=== PATIENT | female | born 1960 | race Caucasian/White ===

== ENCOUNTER 2020-01-09 09:55 | Outpatient (REF) | payer BC, SELFPAY | END 2020-01-09 09:56 | disposition home or self-care (01) | LOC: HO.LAB 09:55 | PROVIDERS: Visit Provider Internal Medicine | DX: Z20.828 Contact with and (suspected) exposure to other viral communicable diseases (principal) | CPT/HCPCS: C9803; U0003 ==

== ENCOUNTER 2020-04-19 07:16 | Emergency (ER) | payer BC, SELFPAY ==
--- NOTE | ~2020-04-19 | XR_ITS ---
EXAMINATION: XR ELBOW, RIGHT CLINICAL INFORMATION: Slip and fall. COMPARISON: None TECHNIQUE: AP, lateral, and oblique views of the right elbow. FINDINGS: There is a prominently displaced intra-articular transverse fracture through the olecranon. The fracture originates 1.7 cm distal to the proximal end of the olecranon. The fracture gap measures up to 2.7 cm. There is prominent soft tissue swelling throughout the posterior aspect of the elbow likely in part involving the olecranon bursa. There is mild apex posterior angulation at the level of the fracture. Question slight posterior subluxation capitellum with respect with the radial head. This may simply be projectional. There is a joint effusion. No additional fractures. XR/XR elbow RT min 3V IMPRESSION: Displaced intra-articular fracture of the olecranon with prominent surrounding soft tissue swelling. Question slight posterior subluxation of the capitellum. I suspect this may be artifactual related to the projection of the lateral view
[2020-04-19 07:43] VITALS: BP 144/68; PULSE 55; RESP 18; TEMP 36.6; O2SAT 99; BMI 20.7
[2020-04-19] MEDS: Acetaminophen 325 MG TABLET 650 MG PO (09:03)
[2020-04-19] MEDS: Ibuprofen 800 MG TABLET PO (09:03)
--- NOTE | 2020-04-19 09:40 | ED_ITS ---
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 Denies sx prior to fall. Denies head trauma, LOC, numbness, tingling, weakness, or injury to other area MD Complaint: extremity pain, extremity swelling, joint swelling and joint paint Onset (ago): hour(s) Related Data Allergies Allergy/AdvReac Type Severity Reaction Status Date / Time No Known Allergies Allergy Mild NOT Unverified 11/08/19 15:52 APPLICABLE Review of Systems Review of Systems: Constitutional: No Fever, No Chills Musculoskeletal: + joint pain, No Myalgias, + Joint Swelling Skin: No Skin Lesions, No rash Neuro: No Weakness, No Numbness, No Paresthesias, No LOC Yes all other systems are reviewed and are negative [facility] Past Medical History Attestation statement: The following information was validated with the patient. Medical History (Updated 04/19/20 @ 09:56 by ESSIE Goldstein) High cholesterol Social History Social History Advance Directives: No Advance Directives Information Provided: No Physical Exam Vital Signs: Vital Signs: Last Vital Signs Temp 98 F 04/19/20 07:43 Pulse 55 04/19/20 07:43 Resp 18 04/19/20 07:43 BP 144/68 H 04/19/20 07:43 Pulse Ox 99 04/19/20 07:43 Body Mass Index 20.7 Const: General: cooperative, healthy appearing and comfortable Orientation/consciousness: patient oriented x3 Limitations: no limitations HENMT: Head: Yes normal to inspection Ears: hearing grossly normal bilaterally General nose exam: Normal external nose present Face and sinus: Yes normal facial exam Eyes: General: appearance normal, both eyes and all related structures Neck: Neck: Yes normal visual inspection Resp: Effort & Inspection: normal respiratory effort Cardio: Peripheral pulses: radial pulses present Skin: Rashes: no rashes Wounds: no wounds Neuro: General: patient oriented x3 Extrem: Other: Right elbow with large swelling/effusion and ecchymosis. Tend er to palpation. Decreased ROM secondary to swelling/pain. Neurovascularly intact distally Hand/wrist forearm nontender Right upper extremity: normal capillary refill Course Course Course Narrative: XR elbow RT min 3V IMPRESSION: Displaced intra-articular fracture of the olecranon with prominent surrounding soft tissue swelling. Question slight posterior subluxation of the capitellum. I suspect this may be artifactual related to the projection of the lateral view >> case discussed with orthopedic ESSIE Burk who evaluated patient in the ED with Dr. Dodd. 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 On exam VSS, NAD, well appearing, concern for fx vs disolcation Plan: XR Discharge Plan Discharge Clinical Impression: Olecranon fracture Qualifiers: Encounter type: initial encounter Fracture type: closed Laterality: right Qualified Code(s): S52.021A - Displaced fracture of olecranon process without intraarticular extension of right ulna, initial encounter for closed fracture Patient Disposition: Home, Self-Care Instructions: Elbow Fracture (ED) Additional Instructions: You have an elbow fracture You need to follow-up with senior project controls specialist on Tuesday Keep splint on, dry, and clean Ice and elevate her elbow Take Tylenol and Motrin at home for pain and swelling, you can take Motrin 600- 800 mg every 6-8 hours. Take with food You can take Tylenol extra-strength 500 mg every 4-6 hours. Do not exceed 4 g of Tylenol in 1 day If your fingers become swollen/discolored or known, pain becomes unbearable or out of proportion remove Tommie wrap and return to the ED immediately Referrals: Rox Dodd MD [Physician] - 2 days
== END 2020-04-19 11:47 | disposition home or self-care (01) ==
PROVIDERS: Emergency Provider Emergency Medicine; PCP Internal Medicine
DX: S52.021A Displaced fracture of olecranon process without intraarticular extension of right ulna, initial encounter for closed fracture (principal); W00.0XXA Fall on same level due to ice and snow, initial encounter; Y93.01 Activity, walking, marching and hiking; Y92.480 Sidewalk as the place of occurrence of the external cause; Y99.9 Unspecified external cause status
CPT/HCPCS: 29105; 73080; 99283

== ENCOUNTER 2020-11-15 07:02 | Outpatient (REF) | payer BC, SELFPAY ==
[2020-11-15 07:35] LABS: MANUAL DIFF FLAG NO
[2020-11-15 07:44] LABS: Eosinophils Absolute Auto 0.1 X10*3/uL (0.0-0.4); Eosinophils Percent Auto 2.3 % (0-4); Hematocrit 44.2 % (37-47); Hemoglobin 14.5 g/dl (12.0-16.0); Lymphocytes Percent Auto 32.1 % (20-40); Mean Corpuscular HGB Conc 32.8 g/dl (31.0-35.0); Mean Corpuscular Hemoglobin 29.9 pg (27.0-33.0); Mean Corpuscular Volume 91.1 fL (80-98); Monocytes Absolute Auto 0.2 X10*3/uL (0.1-1.2); Monocytes Percent Auto 7.3 % (2-11); Neutrophils Absolute Auto 1.7 X10*3/uL (2.0-8.3); Neutrophils Percent Auto 57.3 % (45-73); Platelet Count 156 X10*3/uL (160-400); Red Blood Count 4.85 X10*6/uL (4.20-5.50)
[2020-11-15 08:01] LABS: Alanine Aminotransferase 25 U/L (0-31); Albumin Level 4.2 g/dL (3.5-5.0); Alkaline Phosphatase 80 U/L (39-117); Anion Gap 11 (12-20); Aspartate Amino Transferase 26 U/L (5-31); Bilirubin Total 0.8 mg/dL (0.0-1.0); Blood Urea Nitrogen 14 mg/dL (9-16); Calcium 9.4 mg/dL (8.4-10.2); Carbon Dioxide 28 mmol/L (22-29); Chloride 105 mmol/L (96-108); Cholesterol 228 mg/dL; Estimated Glomerular Filt Rate > 60; Glucose Fasting 106 mg/dL (60-99); HDL Cholesterol 75 mg/dL; LDL Cholesterol Calculated 143 mg/dl; Potassium 3.7 mmol/L (3.3-5.1); Sodium 140 mmol/L (135-145); Total Protein 6.9 g/dL (6.5-8.0); Triglycerides 51 mg/dL
[2020-11-15 08:22] LABS: Thyroid Stimulating Hormone 1.06 uIU/mL (0.32-4.0); Vitamin D 25-OH Total 45.6 ng/mL (>30)
== END 2020-11-15 07:03 | disposition home or self-care (01) ==
LOC: HO.LAB 07:02
PROVIDERS: PCP Internal Medicine; Visit Provider Internal Medicine
DX: M81.0 Age-related osteoporosis without current pathological fracture (principal); E78.00 Pure hypercholesterolemia, unspecified
CPT/HCPCS: 36415; 80053; 80061; 82306; 84443; 85025

== ENCOUNTER 2021-06-05 16:18 | Outpatient (REF) | payer BC, SELFPAY ==
--- NOTE | ~2021-06-05 | CT_ITS ---
EXAMINATION: CT ABDOMEN AND PELVIS WITHOUT CONTRAST CLINICAL INFORMATION: Abdominal pain. COMPARISON: Ultrasound abdomen 09/19/2018. TECHNIQUE: Multidetector volumetric imaging was performed from the superior aspect of the liver through the pubic symphysis. Sagittal and coronal reformatted images were obtained on the technologist's workstation. This CT examination was performed using dose optimization techniques as appropriate, variously including the following: *Automated exposure control *Adjustment of mA and/or kV according to patient size (this includes techniques or standardized protocols for targeted exams where dose is matched to indication/reason for exam; i.e. extremities or head) *Use of iterative reconstruction technique DLP: 389 mGy-cm FINDINGS: LUNG BASES: The visualized lung bases are unremarkable. LIVER, GALLBLADDER, AND BILIARY TREE: The liver is normal in size, shape, and attenuation. No focal hepatic lesion or biliary ductal dilatation is present. The gallbladder is unremarkable with no evidence of radiopaque gallstones, gallbladder wall thickening, or obvious pericholecystic inflammatory changes. PANCREAS: Unremarkable. SPLEEN: Unremarkable. ADRENAL GLANDS: Unremarkable. KIDNEYS AND URETERS: The kidneys are normal in size, shape, and attenuation. No hydronephrosis, hydroureter, or calculi seen. No perinephric stranding. BLADDER: Unremarkable. GASTROINTESTINAL TRACT: There is a large amount of stool seen in the colon without any significant distention. The small bowel loops are normal caliber. The appendix is normal caliber. ABDOMINAL WALL: No significant hernia is appreciated. LYMPH NODES: Normal. VASCULAR: Unremarkable. PELVIC VISCERA: The uterus is anteverted and appears unremarkable. OSSEOUS STRUCTURES: No lytic or sclerotic process seen. There is mildly indistinct changes L4-L5 disc level. CT/CT abdomen pelvis wo con IMPRESSION: No acute intra-abdominal process seen. Significant constipation. Normal appendix. Fleischner guidelines were followed.
[2021-06-05 16:33] LABS: MANUAL DIFF FLAG NO
[2021-06-05 16:39] LABS: Basophils Percent Auto 0.5 % (0-2); Eosinophils Absolute Auto 0.1 X10*3/uL (0.0-0.4); Eosinophils Percent Auto 0.9 % (0-4); Hematocrit 42.7 % (37.0-47.0); Imm Gran Abs Auto 0.02 X10*3/uL (0.00-0.03); Imm Gran Pct Auto 0.4 % (0.0-0.4); Lymphocytes Absolute Auto 1.4 X10*3/uL (1.2-4.9); Lymphocytes Percent Auto 25.7 % (20-40); Mean Corpuscular HGB Conc 32.8 g/dl (31.0-35.0); Mean Corpuscular Hemoglobin 29.7 pg (27.0-33.0); Mean Corpuscular Volume 90.7 fL (80.0-98.0); Mean Platelet Volume 10.8 fL (9.4-12.3); Monocytes Absolute Auto 0.4 X10*3/uL (0.1-1.2); Monocytes Percent Auto 7.4 % (2-11); Neutrophils Absolute Auto 3.6 x10*3/uL (2.0-8.3); Neutrophils Percent Auto 65.1 % (45-73); Platelet Count 176 X10*3/uL (160-400); Red Blood Count 4.71 X10*6/uL (4.20-5.50); Red Cell Distribution Width 13.4 % (11.0-16.0); White Blood Count 5.6 X10*3/uL (4.8-10.8)
[2021-06-05 16:58] LABS: Alanine Aminotransferase 19 U/L (0-31); Albumin Level 4.1 g/dL (3.5-5.0); Alkaline Phosphatase 72 U/L (39-117); Anion Gap 14 (12-20); Aspartate Amino Transferase 26 U/L (5-31); Bilirubin Total 1.1 mg/dL (0.0-1.0); Blood Urea Nitrogen 15 mg/dL (9-16); C Reactive Protein 5.38 mg/dL (< or = 0.50); Calcium 9.7 mg/dL (8.4-10.2); Carbon Dioxide 25 mmol/L (22-29); Chloride 103 mmol/L (96-108); Estimated Glomerular Filt Rate > 60; Glucose Random 93 mg/dL (60-115); Lipase 18 U/L (8-78); Potassium 4.3 mmol/L (3.3-5.1); Sodium 138 mmol/L (135-145); Total Protein 7.3 g/dL (6.5-8.0)
[2021-06-05 18:20] LABS: Appearance Urine CLEAR; Color Urine DK YELLOW; Glucose Urine UA NEG (NEG); Leukocyte Esterase Urine 1+ (NEG); Nitrite Urine NEG (NEG); Specific Gravity - Urine 1.025 (1.005-1.025); Urine Blood 2+ (NEG); Urine Ketones NEG (NEG); Urine Protein TRACE MG/DL (NEG-TRACE)
[2021-06-05 18:29] LABS: Mucus Urine TRACE /LPF; WBC Clumps Urine NOTED
== END 2021-06-05 16:19 | disposition home or self-care (01) ==
LOC: HO.CT 16:18
PROVIDERS: PCP Internal Medicine; Visit Provider Internal Medicine
DX: R10.30 Lower abdominal pain, unspecified (principal)
CPT/HCPCS: 36415; 74176; 80053; 81001; 83690; 85025; 86140

== ENCOUNTER 2022-09-17 08:46 | Outpatient (REF) | payer BC, SELFPAY ==
[2022-09-17 11:27] LABS: MANUAL DIFF FLAG NO
[2022-09-17 11:35] LABS: Basophils Percent Auto 0.7 % (0-2); Eosinophils Percent Auto 0.7 % (0-4); Hematocrit 44.3 % (37.0-47.0); Hemoglobin 14.7 g/dl (12.0-16.0); Imm Gran Abs Auto 0.01 X10*3/uL (0.00-0.03); Imm Gran Pct Auto 0.3 % (0.0-0.4); Lymphocytes Absolute Auto 1.2 X10*3/uL (1.2-4.9); Lymphocytes Percent Auto 37.8 % (20-40); Mean Corpuscular HGB Conc 33.2 g/dl (31.0-35.0); Mean Corpuscular Hemoglobin 30.2 pg (27.0-33.0); Mean Corpuscular Volume 91.2 fL (80.0-98.0); Mean Platelet Volume 11.7 fL (9.4-12.3); Monocytes Absolute Auto 0.3 X10*3/uL (0.1-1.2); Monocytes Percent Auto 8.9 % (2-11); Neutrophils Absolute Auto 1.6 x10*3/uL (2.0-8.3); Neutrophils Percent Auto 51.6 % (45-73); Platelet Count 146 X10*3/uL (160-400); Red Blood Count 4.86 X10*6/uL (4.20-5.50); Red Cell Distribution Width 13.2 % (11.0-16.0)
[2022-09-17 11:58] LABS: Alanine Aminotransferase 20 U/L (0-31); Albumin Level 4.2 g/dL (3.5-5.0); Alkaline Phosphatase 61 U/L (39-117); Anion Gap 15 (12-20); Aspartate Amino Transferase 27 U/L (5-31); Bilirubin Total 0.9 mg/dL (0.0-1.0); Blood Urea Nitrogen 22 mg/dL (9-16); Calcium 9.5 mg/dL (8.4-10.2); Carbon Dioxide 24 mmol/L (22-29); Chloride 102 mmol/L (96-108); Cholesterol 248 mg/dL; Estimated Glomerular Filt Rate > 60; Glucose Fasting 82 mg/dL (60-99); HDL Cholesterol 75 mg/dL; LDL Cholesterol Calculated 164 mg/dl; Potassium 3.9 mmol/L (3.3-5.1); Sodium 137 mmol/L (135-145); Total Protein 7.1 g/dL (6.5-8.0); Triglycerides 45 mg/dL
== END 2022-09-17 08:47 | disposition home or self-care (01) ==
LOC: HO.HMGCLDS 08:46
PROVIDERS: PCP Internal Medicine; Visit Provider Internal Medicine
DX: E78.00 Pure hypercholesterolemia, unspecified (principal); M81.0 Age-related osteoporosis without current pathological fracture
CPT/HCPCS: 36415; 80053; 80061; 82306; 84443; 85025

== ENCOUNTER 2022-11-22 12:48 | Outpatient (REF) | payer BC, SELFPAY ==
[2022-11-22 16:01] LABS: Appearance Urine Clear; Color Urine Yellow; Glucose Urine UA Negative (Negative); Leukocyte Esterase Urine Negative (Negative); Nitrite Urine Negative (Negative); PH 5.5 (5.0-9.0); Specific Gravity - Urine <= 1.005 (1.005-1.025); Urine Blood Negative (Negative); Urine Ketones Negative (Negative); Urine Protein Negative (Neg-Trace)
[2022-11-22 16:03] LABS: Bacteria Urine None Seen (None Seen); Hyaline Casts Urine 0-2 /LPF (0-2); RBC Urine 0-2 /HPF (0-2); Squamous Epithelial Cell Urine 0-2 /HPF (0-2); WBC Urine 0-5 /HPF (0-5)
== END 2022-11-22 12:49 | disposition home or self-care (01) ==
LOC: HO.HMGCLDS 12:48
PROVIDERS: PCP Internal Medicine; Visit Provider Internal Medicine
DX: E78.00 Pure hypercholesterolemia, unspecified (principal); M81.0 Age-related osteoporosis without current pathological fracture
CPT/HCPCS: 81001

== ENCOUNTER 2023-08-02 06:36 | Outpatient (REF) | payer BC, SELFPAY ==
[2023-08-02 10:29] LABS: Appearance Urine Clear; Color Urine Yellow; Glucose Urine UA Negative (Negative); Leukocyte Esterase Urine Trace (Negative); Nitrite Urine Negative (Negative); Specific Gravity - Urine <= 1.005 (1.005-1.025); UMIC TRIGGER UA YES; Urine Blood Negative (Negative); Urine Ketones Negative (Negative); Urine Protein Negative (Neg-Trace)
[2023-08-02 10:31] LABS: MANUAL DIFF FLAG NO
[2023-08-02 10:46] LABS: Eosinophils Absolute Auto 0.1 X10*3/uL (0.0-0.4); Eosinophils Percent Auto 2.3 % (0-4); Hematocrit 42.3 % (37.0-47.0); Hemoglobin 14.4 g/dl (12.0-16.0); Lymphocytes Percent Auto 31.8 % (20-40); Mean Corpuscular Hemoglobin 31.3 pg (27.0-33.0); Mean Platelet Volume 11.3 fL (9.4-12.3); Monocytes Absolute Auto 0.3 X10*3/uL (0.1-1.2); Monocytes Percent Auto 8.2 % (2-11); Neutrophils Absolute Auto 1.7 x10*3/uL (2.0-8.3); Neutrophils Percent Auto 56.7 % (45-73); Platelet Count 154 X10*3/uL (160-400); Red Cell Distribution Width 14.1 % (11.0-16.0); White Blood Count 3.1 X10*3/uL (4.8-10.8)
[2023-08-02 11:34] LABS: Bacteria Urine None Seen (None Seen); Hyaline Casts Urine 0-2 /LPF (0-2); RBC Urine 0-2 /HPF (0-2); Squamous Epithelial Cell Urine 0-2 /HPF (0-2); WBC Urine 0-5 /HPF (0-5)
[2023-08-02 11:37] LABS: Alanine Aminotransferase 28 U/L (0-31); Albumin Level 3.9 g/dL (3.5-5.0); Alkaline Phosphatase 86 U/L (39-117); Anion Gap 11 (12-20); Aspartate Amino Transferase 33 U/L (5-31); Bilirubin Total 0.4 mg/dL (0.0-1.0); Blood Urea Nitrogen 15 mg/dL (9-16); Carbon Dioxide 28 mmol/L (22-29); Chloride 104 mmol/L (96-108); Cholesterol 220 mg/dL (<200); Estimated Glomerular Filt Rate > 60; Glucose Fasting 89 mg/dL (60-99); HDL Cholesterol 78 mg/dL (>40); LDL Cholesterol Calculated 134 mg/dL (<100); Potassium 4.2 mmol/L (3.3-5.1); Sodium 139 mmol/L (135-145); Total Protein 6.4 g/dL (6.5-8.0); Triglycerides 41 mg/dL (<150)
[2023-08-02 11:40] LABS: Thyroid Stimulating Hormone 2.26 uIU/mL (0.32-4.0); Vitamin D 25-OH Total 84.7 ng/mL (>30)
== END 2023-08-02 06:37 | disposition home or self-care (01) ==
LOC: HO.HMGCLDS 06:36
PROVIDERS: PCP Internal Medicine; Visit Provider Internal Medicine
DX: Z00.00 Encounter for general adult medical examination without abnormal findings (principal); E78.00 Pure hypercholesterolemia, unspecified; M81.0 Age-related osteoporosis without current pathological fracture
CPT/HCPCS: 36415; 80053; 80061; 81001; 82306; 84443; 85025

== ENCOUNTER 2023-12-26 13:59 | Emergency (ER) | payer BC, SELFPAY ==
--- NOTE | ~2023-12-26 | CT_ITS ---
EXAMINATION: CT ABDOMEN AND PELVIS WITH CONTRAST CLINICAL INFORMATION: Left lower quadrant and pelvic pain COMPARISON: CT abdomen pelvis 06/05/21 TECHNIQUE: Multidetector volumetric imaging was performed from the superior aspect of the liver through the pubic symphysis with intravenous contrast. A total of 85 mL of Omnipaque 350 was utilized for the study. Sagittal and coronal reformatted images were obtained on the technologist's workstation. This CT examination was performed using dose optimization techniques as appropriate, variously including the following: *Automated exposure control *Adjustment of mA and/or kV according to patient size (this includes techniques or standardized protocols for targeted exams where dose is matched to indication/reason for exam; i.e. extremities or head) *Use of iterative reconstruction technique DLP: 362 mGy-cm FINDINGS: LUNG BASES: The visualized lung bases are unremarkable. LIVER, GALLBLADDER, AND BILIARY TREE: The liver is normal in size, shape, and attenuation. No focal hepatic lesion or biliary ductal dilatation is present. The gallbladder is unremarkable with no evidence of radiopaque gallstones, gallbladder wall thickening, or obvious pericholecystic inflammatory changes. PANCREAS: Unremarkable. SPLEEN: Unremarkable. ADRENAL GLANDS: Unremarkable. KIDNEYS AND URETERS: The kidneys are normal in size, shape, and attenuation. No hydronephrosis, hydroureter, or calculi seen. No perinephric stranding. BLADDER: Unremarkable. GASTROINTESTINAL TRACT: The small and large bowel are unremarkable. The appendix is unremarkable. ABDOMINAL WALL: No significant hernia is appreciated. LYMPH NODES: Normal. VASCULAR: Unremarkable. PELVIC VISCERA: Unremarkable. OSSEOUS STRUCTURES: Degenerative changes are seen most marked at L4-L5. CT/CT abdomen pelvis w IV con IMPRESSION: A cause for the patient's left lower quadrant and pelvic pain has not been found. Fleischner guidelines were followed. Electronically signed by: Reymundo Ragland MD 12/26/2023 11:13 PM [facility] [place]
[2023-12-26 14:07] VITALS: BP 105/53; PULSE 62; RESP 18; TEMP 36.1; O2SAT 97; BMI 18.7
--- NOTE | 2023-12-26 14:12 | ED_ITS ---
HPI - General Adult General Chief complaint: Abdominal Pain Stated complaint: lower abd pain Time Seen by Provider: 12/26/23 20:29 Source: patient Limitations: no limitations History of Present Illness ED Provider: Carol Ann mcduffie PA-C HPI narrative: 63-year-old otherwise healthy female presents with left-sided groin pain x1 month. Pain worse with movement, the patient never developed swelling within this region. Denies abdominal distention, inability to pass flatus, constipation, nausea, vomiting. No fevers. Patient does perform a great deal of physical activity, she could have sustained musculoskeletal strain. Related Data Allergies Allergy/AdvReac Type Severity Reaction Status Date / Time amoxicillin Allergy Itching Verified 12/26/23 14:09 Review of Systems 2 Review of Systems: Yes all other systems are reviewed and are negative Constitutional: Constitutional: Denies fatigue and Denies fever(s) Cardiovascular: Cardiovascular: Denies chest pain and Denies dyspnea Respiratory: Respiratory: Denies dyspnea Gastrointestinal: Gastrointestinal: Reports abdominal pain, Denies nausea and Denies vomiting Endocrine: Endocrine: Denies fatigue [facility] Past Medical History Medical History (Updated 12/28/23 @ 00:02 by Background Daemon) Osteoporosis High cholesterol Social History Social History Smoked in Last 30 Days: No Use of substances other than those prescribed or required for medical reasons: No Any prior treatment program specific to substance use: No Advance Directives: No Advance Directives Information Provided: No Do you have a plan to hurt others: No Plan Patient : No Physical Exam ED Vital Signs: Vital Signs - 24 hr 12/26/23 14:07 12/26/23 20:34 12/26/23 22:13 Temperature 97 F 97.5 F 97.6 F Pulse Rate 62 50 66 Respiratory Rate 18 20 16 Blood Pressure 105/53 L 113/59 L 116/66 Pulse Oximetry 97 98 97 Oxygen Delivery Method Room Air Room Air Room Air 12/27/23 00:00 12/27/23 00:23 Temperature 97.8 F 97.6 F Pulse Rate 66 66 Respiratory Rate 16 16 Blood Pressure 126/73 116/66 Pulse Oximetry 98 97 Oxygen Delivery Method Room Air Room Air BMI result Body Mass Index 18.7 Const Other: Alert, well in appearance Orientation/consciousness: patient oriented x3 Resp Other: Nonlabored respiration Cardio Other: Normal peripheral perfusion GI Other: Abdomen is soft, nondistended nontender no guarding, no swelling within the left inguinal region, nontender to palpation Skin Other: Warm dry no rash Neuro General: patient oriented x3, no focal motor deficits and CN's II-XI intact bilaterally Psych Other: Calm cooperative Course Course Course Narrative: RME: 63-year-old female presents to ED bilateral lower abdominal pain with groin pain without any mass, fever, chills, nausea, vomiting. Patient admits to foul odor urine. Abdominal exam benign. CVA flex negative. Labs UA ordered. Medications Administered Discontinued Medications Generic Name Dose Route Start Last Admin Trade Name Luisq PRN Reason Stop Dose Admin Iohexol 85 ml 12/26/23 21:05 12/26/23 21:06 Iohexol 350 Mg/Ml 100 Ml Infus..Btl IV 12/26/23 21:06 85 ml ONCE ONE Administration Medical Decision Making Medical Decision Making [facility] Narrative: 63-year-old otherwise healthy female presents with left-sided groin pain x1 month. Pain worse with movement, the patient never developed swelling within this region. Denies abdominal distention, inability to pass flatus, constipation, nausea, vomiting. No fevers. Patient does perform a great deal of physical activity, she could have sustained musculoskeletal strain. No chronic issues History: Per patient I have considered the following differential diagnoses: Inguinal hernia, incarcerated hernia, strangulated hernia, bowel obstruction, musculoskeletal strain Plan: Unclear why the patient comes to the ER given a month's worth of symptoms. Screening labs were obtained from triage and are completely unremarkable. Considering bowel obstruction, however she has no obstructive symptoms. There was no evidence of an inguinal hernia on exam. We will obtain a CT scan. I have independently reviewed the following tests: Labs: No leukocytosis, not anemic, no electrolyte abnormality, urine not in fact CT abdomen and pelvis: CT/CT abdomen pelvis w IV con IMPRESSION: A cause for the patient's left lower quadrant and pelvic pain has not been found. Fleischner guidelines were followed. Electronically signed by: Reymundo Ragland MD 12/26/2023 11:13 PM [facility] Lab Data 12/26/23 14:40 12/26/23 14:40 Labs: Lab Results 12/26/23 12/26/23 Range/Units 14:40 14:54 WBC 3.8 L (4.8-10.8) X10*3/uL RBC 4.23 (4.20-5.50) X10*6/uL Hgb 12.9 (12.0-16.0) g/dl Hct 38.4 (37.0-47.0) % MCV 90.8 (80.0-98.0) fL MCH 30.5 (27.0-33.0) pg MCHC 33.6 (31.0-35.0) g/dl RDW 14.6 (11.0-16.0) % Plt Count 144 L (160-400) X10*3/uL MPV 10.4 (9.4-12.3) fL Immature Gran % (Auto) 0.3 (0.0-0.4) % Neut % (Auto) 52.0 (45-73) % Lymph % (Auto) 37.1 (20-40) % [place] % (Auto) 8.7 (2-11) % Eos % (Auto) 1.1 (0-4) % Baso % (Auto) 0.8 (0-2) % Lymph # (Auto) 1.4 (1.2-4.9) X10*3/uL [place] # (Auto) 0.3 (0.1-1.2) X10*3/uL Eos # (Auto) 0.0 (0.0-0.4) X10*3/uL Baso # (Auto) 0.0 (0.0-0.2) X10*3/uL Abs Immat Gran (auto) 0.01 (0.00-0.03) X10*3/uL Absolute Neuts (auto) 2.0 (2.0-8.3) x10*3/uL Absolute Nucleated RBC 0.000 (0.0-0.012) X10*3/uL Nucleated RBC % (auto) 0.0 (0.0-0.2) /100WBC PT 11.6 (10.9-12.4) SEC INR 1.0 (0.9-1.1) APTT 31.2 (26.0-36.8) SEC Sodium 139 (135-145) mmol/L Potassium 3.8 (3.3-5.1) mmol/L Chloride 103 (96-108) mmol/L Carbon Dioxide 28 (22-29) mmol/L Anion Gap 12 (12-20) BUN 21 H (9-16) mg/dL Creatinine 0.71 (0.5-1.4) mg/dL Estim Creat Clear Calc 77.4 Estimated GFR > 60 Random Glucose 88 (60-115) mg/dL Calcium 9.7 D (8.4-10.2) mg/dL Total Bilirubin 0.6 (0.0-1.0) mg/dL AST 35 H (5-31) U/L ALT 30 (0-31) U/L Alkaline Phosphatase 85 (39-117) U/L Total Protein 6.6 (6.5-8.0) g/dL Albumin 4.0 (3.5-5.0) g/dL Urine Color Yellow Urine Appearance Clear Urine pH 6.5 (5.0-9.0) Ur Specific [place] <= 1.005 (1.005-1.025) Urine Protein Negative (Neg-Trace) mg/dL Urine Glucose (UA) Negative (Negative) mg/dL Urine Ketones Negative (Negative) mg/dL Urine Blood Negative (Negative) Urine Nitrite Negative (Negative) Ur Leukocyte Esterase Negative (Negative) Discharge Plan Discharge Clinical Impression: Left groin pain Patient Disposition: Home, Self-Care Additional Instructions: The CT scan of your abdomen and pelvis was completely normal, this is likely strain of the groin. All of your labs were normal as well. Continue to follow up with your primary care provider as needed. You can use ibuprofen 600 mg taken every 6 hours with food, alternated with Tylenol 1000 mg taken every 8 hours, for your pain. Interventions: ED Discharge Assessment Last Done: 12/27/23 00:23 Discharge Date/Time: 12/27/23 00:24 Print Language: Korean
[2023-12-26 14:45] LABS: MANUAL DIFF FLAG NO
[2023-12-26 14:48] LABS: Basophils Percent Auto 0.8 % (0-2); Eosinophils Percent Auto 1.1 % (0-4); Hematocrit 38.4 % (37.0-47.0); Hemoglobin 12.9 g/dl (12.0-16.0); Imm Gran Abs Auto 0.01 X10*3/uL (0.00-0.03); Imm Gran Pct Auto 0.3 % (0.0-0.4); Lymphocytes Absolute Auto 1.4 X10*3/uL (1.2-4.9); Lymphocytes Percent Auto 37.1 % (20-40); Mean Corpuscular HGB Conc 33.6 g/dl (31.0-35.0); Mean Corpuscular Hemoglobin 30.5 pg (27.0-33.0); Mean Corpuscular Volume 90.8 fL (80.0-98.0); Mean Platelet Volume 10.4 fL (9.4-12.3); Monocytes Absolute Auto 0.3 X10*3/uL (0.1-1.2); Monocytes Percent Auto 8.7 % (2-11); Platelet Count 144 X10*3/uL (160-400); Red Blood Count 4.23 X10*6/uL (4.20-5.50); Red Cell Distribution Width 14.6 % (11.0-16.0); White Blood Count 3.8 X10*3/uL (4.8-10.8)
[2023-12-26 14:51] LABS: Prothrombin Time 11.6 SEC (10.9-12.4)
[2023-12-26 14:54] LABS: Partial Thromboplastin Time 31.2 SEC (26.0-36.8)
[2023-12-26 15:05] LABS: Appearance Urine Clear; Color Urine Yellow; Glucose Urine UA Negative (Negative); Leukocyte Esterase Urine Negative (Negative); Nitrite Urine Negative (Negative); PH 6.5 (5.0-9.0); Specific Gravity - Urine <= 1.005 (1.005-1.025); Urine Blood Negative (Negative); Urine Ketones Negative (Negative); Urine Protein Negative (Neg-Trace)
[2023-12-26 15:06] LABS: Alanine Aminotransferase 30 U/L (0-31); Alkaline Phosphatase 85 U/L (39-117); Anion Gap 12 (12-20); Aspartate Amino Transferase 35 U/L (5-31); Bilirubin Total 0.6 mg/dL (0.0-1.0); Blood Urea Nitrogen 21 mg/dL (9-16); Calcium 9.7 mg/dL (8.4-10.2); Carbon Dioxide 28 mmol/L (22-29); Chloride 103 mmol/L (96-108); Creatinine Clr Calc Pharmacy 77.4; Estimated Glomerular Filt Rate > 60; Glucose Random 88 mg/dL (60-115); Potassium 3.8 mmol/L (3.3-5.1); Sodium 139 mmol/L (135-145); Total Protein 6.6 g/dL (6.5-8.0)
--- OUTSIDE RECORDS SUMMARY | 2023-12-26 20:21 | XMS_ITS | Continuity of Care Document ---
Author Organization [facility] ter Address [address] [place] [address]- Care Team Providers Care Poultry Farm Supervisor Name Role Phone Brijesh Tabares DO Primary Care Physician [phone] Encounter [facility] Date(s): 02/26/19 - 02/26/[address] [address]- [facility] Discharge Disposition: A-D/C Home Attending Physician: Shiv Torres MD Admitting Physician: Shiv Torres MD Referring Physician: Shiv Torres MD Allergies, Adverse Reactions, Alerts Substance Reaction Severity Status Animal Dander itchy eyes and skin itches cats and dogs Active Immunizations Given and Recorded Vaccine Date Status Refusal Reason pneumococcal 23-valent vaccine 1 07/08/12 Given 1Early/Late Reason: Other : Medications atorvastatin 40 mg oral tablet 1 tablet = 40 mg, By Mouth, Daily in AM, 0 Refills, Maintenance Start Date: 07/12/18 Status: Ordered Vital Signs Most recent to oldest [Reference Range]: 1 2 3 Height 173 cm (02/26/19 1:58 PM) 177.80 cm (02/20/19 8:56 AM) Weight 66.3 kg (02/26/19 1:58 PM) 63.64 kg (02/20/19 8:56 AM) Oxygen Saturation [94-100 %] 100 % (02/26/19 5:00 PM) 100 % (02/26/19 4:45 PM) 100 % (02/26/19 4:30 PM) Pulse Rate [55-90 bpm] 51 bpm *L* (02/26/19 1:58 PM) Body Mass Index [18.5-24.99] 22.15 (02/26/19 1:58 PM) 20.13 (02/20/19 8:56 AM) Blood Pressure [90-138/55-84 mm Hg] 115/72mm Hg (02/26/19 5:00 PM) 115/72mm Hg (02/26/19 4:45 PM) 133/68mm Hg (02/26/19 4:30 PM) Respiratory Rate [16-30 br/min] 15 br/min *L* (02/26/19 5:00 PM) 18 br/min (02/26/19 4:45 PM) 16 br/min (02/26/19 4:30 PM) Temperature [96.8-100.4 DegF] 97.2 DegF (02/26/19 4:15 PM) 97.4 DegF (02/26/19 1:58 PM) Mode of Delivery (Oxygen) Room air (02/26/19 7:30 PM) Room air (02/26/19 1:58 PM) Blood pressure sites Arm, left (02/26/19 1:58 PM) Temperature Route Temporal (02/26/19 4:15 PM) Temporal (02/26/19 1:58 PM) Dry Weight 66.3 kg (02/26/19 1:58 PM) 63.64 kg (02/20/19 8:56 AM) Weight Obtained Via Standing scale (02/26/19 1:58 PM) Patient/family stated (02/20/19 8:56 AM) Dry Weight Obtained Via Standing scale (02/26/19 1:58 PM) Patient/family stated (02/20/19 8:56 AM)
--- OUTSIDE RECORDS SUMMARY | 2023-12-26 20:21 | XMS_ITS | Continuity of Care Document ---
Author Organization [facility] ter Address [address] [place] [address]- Care Team Providers Care Housekeeping Coordinator Name Role Phone Brijesh Tabares DO Primary Care Physician [phone] Encounter [facility] Date(s): 05/04/19 - 05/04/[address] [address]- [facility] Discharge Disposition: A-D/C Home Attending Physician: Shiv [...] Refills, Maintenance Start Date: 07/12/18 Status: Ordered Results Orders for Microbiology Reports Name Date Anaerobic Culture 05/04/19 Microbiology Reports TEST:Anaerobic Culture STATUS:Unauthenticated BODY SITE: SOURCE:ASPIRA COLLECTED DATE/TIME:05/04/19 12:30 PM Anaerobic Culture SPECIMEN DESCRIPTION : ASPIRATE BREAST RT SEROMA SPECIAL REQUESTS : NONE REPORT STATUS : PRELIMINARY REPORT Vital Signs Most recent to oldest [Reference Range]: 1 Height 173 cm (05/04/19 10:17 AM) Weight 62.7 kg (05/04/19 10:17 AM) Oxygen Saturation [94-100 %] 97 % (05/04/19 10:05 AM) Pulse Rate [55-90 bpm] 56 bpm (05/04/19 10:05 AM) Blood Pressure [90-138/55-84 mm Hg] 125/ 53mm Hg (05/04/19 10:05 AM) Respiratory Rate [16-30 br/min] 20 br/mi n (05/04/19 10:05 AM) Temperature [96.8-100.4 DegF] 98.5 DegF (05/04/19 10:05 AM) Mode of Delivery (Oxygen) Room air (05/04/19 10:05 AM) Blood pressure sites Arm, left (05/04/19 10:05 AM) Temperature Route Oral (05/04/19 10:05 AM) Dry Weight 62.7 kg (05/04/19 10:17 AM)
--- OUTSIDE RECORDS SUMMARY | 2023-12-26 20:21 | XMS_ITS | Patient Health Record ---
Author Organization [facility] Address [address] [place] [address] Care Team Providers Care Gaming Cage Worker Name Role Phone Brijesh Tabares DO Primary Care Provider Unavail able Brijesh Levi Unavailable [phone] REASON FOR REFERRAL No Information MEDICATIONS Medication SIG (Take, Route, Frequency, Duration) Notes Start Date End Date Status Krill Oil 500 MG Orally Act miladis Vitamin C 1000 MG 1 tablet Orally Once a day Active Multi Vitamin/Minerals Orally Active Biotin Maximum Strength 5000 MCG 1 capsule Orally Once a day Active Escitalopram Oxalate 10 MG 1 tablet Oral ly Once a day Active Vitamin D-Vitamin K Orally Active MoviPrep 100 GM as directed Orally a s directed for 1 dose 02/06/2014 Active Atorvastatin Calcium 20 MG 1 tablet Oral ly Once a day Active SOCIAL HISTORY Sex Assigned At : Social History Observation Description Sex Assigned At Unknown PROBLEMS Problem Type ICD Code Onset Dates Problem Status W/U Status Risk SNOMED Code Notes Problem Colon cancer screening (V76.51) Active confirmed Colon cancer screening (815854668) Problem Encounter for long-term (current) use of other high-risk medications (V58.69) Active confirmed Long-term drug therapy (325141113) PLAN OF TREATMENT Future Test Test Name Order Date COLONOSCOPY 02/05/2014 Next Appt Details Provider Name:Brijesh Levi , 03/14/2024 02:40:00 PM, [address], [address], [place], [address], Insurance Providers Payer Name Payer Address Payer Phone Subscriber Number Group Number Insured Name Patient Relationship to Insured Coverage Start Date Coverage End Date [facility] [employer] [facility] [address] [place] [address] [id number] JOELLEN KING Self - patient is the insured 4 MEDICAL (GENERAL) HISTORY Medical History History ICD Code Breast cancer 2009--primarily on the lef t[facility] describes that it was stress induced --2012--reports a normal cardiac cath Denies DM,CVA,Lung disease,renal disease Hyperlipidemia Depression Surgical History Surgery Date(Month/Year) bilateral mastectomy--at [facility] 2009 reconstructive surgery-Dr. Torres 2009-2 012 vein ligation- several [phone]
--- OUTSIDE RECORDS SUMMARY | 2023-12-26 20:21 | XMS_ITS | Continuity of Care Document ---
Author Organization [facility] ter Address [address] [place] [address]- Care Team Providers Care Stack Clerk Name Role Phone Brijesh Tabares DO Primary Care Physician [phone] Encounter [facility] Date(s): 03/02/21 - 05/24/[address] [address] Attending Physician: Shiv Torres MD Admitting Physician: Shiv Torres MD Allergies, Adverse Reactions, Alerts Substance Reaction Severity Status Pollen Active Immunizations Given and Recorded Vaccine Date Status Refusal Reason pneumococcal 23-valent vaccine 1 07/08/12 Given 1Early/Late Reason: Other : Medications atorvastatin 40 mg oral tablet 1 tablet = 40 mg, By Mouth, Daily in AM, 0 Refills, Maintenance Start Date: 07/12/18 Status: Ordered
--- OUTSIDE RECORDS SUMMARY | 2023-12-26 20:21 | XMS_ITS | Continuity of Care Document ---
Author Organization [facility] Address [address] [place] [address]- Care Team Providers Care Pediatric Care Coordinator Name Role Phone Brijesh Tabares DO Primary Care Physician Encounter 06/19/20 - 06/26/20 [facility] [place] [address], [address] [place] [address]- Attending Physician: Izabel Starr MD Admitting Physician: Izabel tSarr MD Referring Physician: Izabel Starr MD Allergies, Adverse Reactions, Alerts Substance Reaction Severity Status Pollen Active Immunizations Given and Recorded Vaccine Date Status Refusal Reason pneumococcal 23-valent vaccine 1 07/08/12 Given 1Early/Late Reason: Other : Medications atorvastatin 40 mg oral tablet 1 tablet = 40 mg, By Mouth, Daily in AM, 0 Refills, Maintenance Start Date: 07/12/18 Status: Ordered Results Radiology Reports * Exam Date Time Procedure Performing Provider Status 06/19/20 11:20 AM Dexa Bone Density (Axial) Indu Zheng ce; Auth (Verified) Notes: (Dexa Bone Density (Axial)) Reason For Exam: Z13.820 OSTEOPOROSIS RESULT: DEXA BONE DENSITY (AXIAL) Bone Density Report Name: JOELLEN KING Age: 60 Sex: Female Ethnicity: White Date of : 1960 Indication: OSTEOPOROSIS. Referring Provider: IZABEL STARR Study: Bone densitometry was performed. Exam Date: June 19, 2020 Accession number: [id number] Bone Density: Region BMD T-score Z-score Classification AP Spine (L1-L4) 0.638 -3.7 -2.4 Osteoporosis Femoral Neck (Left) 0.587 -2.4 -1.2 Osteopenia Total Hip (Left) 0.668 -2.2 -1.4 Osteopenia World Health Organization criteria for BMD impression classify patients as: Normal (T-score at or above -1.0), Osteopenia (T-score between -1.0 and -2.5), or Osteoporosis (T-score at or below -2.5). 10-year Fracture Risk: FRAX not reported because: Some T-score at or below -2.5 Clinical Information Provided by Patient: Has used the following medications: Vitamin D Has the following medical conditions: Cancer Patient maximum height was 70.0 Menopause Age: 54 Onset of menses at age 17 Number of children 4 Impression: The patient has osteoporosis as determined by WHO criteria. Based on the results of the patient???s bone density assessment, the risk of future fracture increases approximately two fold for each 1.0 SD decrease in T-score. However, low BMD is not the only risk factor for a future fragility fracture. Other clinical risk factors for osteoporotic fracture should be considered in ascertaining this patient???s future fracture risk including the patient???s age, previous osteoporotic (fragility) fracture, estrogen deficiency/hypogonadism, risk of falling, use of medications implicated in bone loss (glucocorticoids), family history of osteoporotic fracture, diseases and conditions associated with bone loss, low body weight, smoking, high bone turnover, etc. Combining low BMD and other clinical risk factors result in a more precise assessment of future fracture risk. Secondary causes for osteoporosis, such as osteomalacia, other metabolic bone disorders, and diseases and conditions that may contribute to accelerated bone loss may have to be considered depending on the clinical situation. A repeat bone density assessment should be considered in two years. Reported by: Luz Maria Winn M.D. on 06/20/2020 2:15:00 PM. Dictated By: Luz Maria Winn MD Dictated Date/Time: 06/20/20 2:15 pm Reviewed By: Luz Maria Winn MD Signed By: Luz Maria Winn MD Signed Date/Time: 06/20/20 2:15 pm Transcribed By: MEL Transcribed Date/Time: 06/20/20 2:15 pm
--- OUTSIDE RECORDS SUMMARY | 2023-12-26 20:21 | XMS_ITS | Continuity of Care Document ---
Author Organization [facility] Address [address] [place] [address]- Care Team Providers Care Management Professionals Name Role Phone Brijesh Tabares DO Primary Care Physician [phone] Encounter [facility] [place] Date(s): 09/30/23 - 10/31/[address] [address] Encounter Diagnosis Dizziness and giddiness(Final) - Discharge Disposition: A-D/C Home Attending Physician: Brijesh Tabares DO Admitting Physician: Brijesh Tabares DO Referring Physician: Brijesh Tabares DO Allergies, Adverse Reactions, Alerts Substance Reaction Severity Status amoxicillin extreme itching Active Other Environmental Allergy seasonal: na rosalba congestion, post nasal drip, Active Pollen nasal congestion, post nasal drip Active Immunizations Given and Recorded Vaccine Date Status Refusal Reason pneumococcal 23-valent vaccine 1 07/08/12 Given 1Early/Late Reason: Other : Medications atorvastatin 40 mg oral tablet 1 tablet = 40 mg, By Mouth, Daily in AM, 0 Refills, Maintenance Start Date: 07/12/18 Status: Ordered Pen [place], 31 G x 5 mm BD Ultra Fine III See Instructions, # 100 each, Refills 1, Tot. Refills 1, Maintenance, Use daily with tymlos, 09/22/23 15:35:00 EDT, Supply, 171.5, cm, 08/04/23 11:09:00 EDT, Height Start Date: 09/22/23 Status: Ordered Tymlos 3120 mcg/1.56 mL subcutaneous solution = 80 mcg, Subcutaneous Injection, Daily, rotate injection sites, # 1.56 mL, 5 Refills, Maintenance,09/22/23 15:34:00 EDT, Solution, [facility], Partial fill upon patient request if the prescription is for a schedule II opioid drug.,... Start Date: 09/22/23 Status: Ordered Tymlos 3120 mcg/1.56 mL subcutaneous solution = 80 mcg, Subcutaneous Injection, Daily in AM, rotate injection sites, # 1.56 mL, 0 Refills, Maintenance, 07/23/21 10:44:00 EDT, Solution, Partial fill upon patient request if the prescription is fora schedule II opioid drug. Start Date: 07/23/21 Status: Ordered Patient Care team information Care Team Personnel Name: Brijesh Tabares DO Position: Reference Physician Member Role: PCP Address: Address: [address] [place] [address] [place] [address]- Care Team Related Persons Name: SHON KING Address: home [address] [place] [address]
--- OUTSIDE RECORDS SUMMARY | 2023-12-26 20:21 | XMS_ITS | Continuity of Care Document ---
Author Organization [facility] ter Address [address] [place] [address]- Care Team Providers Care Hydroelectric Plant Technician Name Role Phone Brijesh Tabares DO Primary Care Physician [phone] [place] [facility] [place] - 09/27/[address] [address]- [facility] Attending Physician: Shiv Torres MD Admitting Physician: [...]
--- OUTSIDE RECORDS SUMMARY | 2023-12-26 20:21 | XMS_ITS | Continuity of Care Document ---
Author Organization [facility] Address [address] [place] [address]- Care Team Providers Care Serology Technician Name Role Phone Brijesh Tabares DO Primary Care Physician Encounter 06/23/22 - 06/30/22 [facility] [address] [place] [address]- Attending Physician: Marly Mena Admitting Physician: Marly Mena Referring Physician: Marly Mena Allergies, Adverse Reactions, Alerts Substance Reaction Severity [...] Refills, Maintenance Start Date: 07/12/18 Status: Ordered Tymlos 3120 mcg/1.56 mL subcutaneous solution = 80 mcg, Subcutaneous Injection, Daily in AM, rotate injection sites, # 1.56 mL, 0 Refills, Maintenance, 07/23/21 10:44:00 EDT, Solution, Partial fill upon patient request if the prescription is fora schedule II opioid drug. Start Date: 07/23/21 Status: Ordered Results Radiology Reports * Exam Date Time Procedure Performing Provider Status 06/23/22 3:55 PM Dexa Bone Density (Axial) Lois Todd (Verified) Notes: (Dexa Bone Density (Axial)) Reason For Exam: M81.0 AGE-RELATED OSTEOPOROSIS RESULT: DEXA BONE DENSITY (AXIAL) Bone Density Report Name: JOELLEN KING Age: 62 Sex: Female Ethnicity: White Date of : 1960 Indication: POSTMENOPAUSAL. Referring Provider: MARLY MENA Study: Bone densitometry was performed. Exam Date: June 23, 2022 Accession number: [id number] Bone Density: Region BMD T-score Z-score Classification AP Spine(L1-L4) 0.707 -3.1 -1.7 Osteoporosis Femoral Neck (Left) 0.584 -2.4 -1.1 Osteopenia Total Hip (Left) 0.668 -2.2 -1.3 Osteopenia World Health Organization criteria for BMD impression classify patients as: Normal (T-score at or above -1.0), Osteopenia (T-score between -1.0 and -2.5), or Osteoporosis (T-score at or below -2.5). 10-year Fracture Risk: FRAX not reported because: Some T-score at or below -2.5 Previous Exams: Region Exam Age BMD T-score BMD Change BMD Change Date g/cm2 vs Baseline vs Previous AP Spine(L1-L4) 06/23/2022 62 0.707 -3.1 10.8%* 10.8%* 06/19/2020 60 0.638 -3.7 Total Hip(Left) 06/23/2022 62 0.668 -2.2 0.1% 0.1% 06/19/2020 60 0.668 -2.2 Femoral Neck(Left) 06/23/2022 62 0.584 -2.4 -0.6% -0.6% 06/19/2020 60 0.587 -2.4 *Denotes significance at 95% confidence level, LSC for AP Spine = 0.022 g/cm2, LSC for Total Hip = 0.027 g/cm2 Clinical Information Provided by Patient: Smokes Has used the following medications: Vitamin D, Calcium Has the following medical conditions: Cancer Patient maximum height was 70.0 Menopause Age: 54 Onset of menses at age 17 Number of children 4 Impression: The patient has osteoporosis as determined by WHO criteria. Reported by: Fernie Centeno M.D. on 06/25/2022 4:10:00 PM. Dictated By: Fernie Centeno MD Dictated Date/Time: 06/25/22 4:11 pm Reviewed By: Fernie Centeno MD Signed By: Fernie Centeno MD Signed Date/Time: 06/25/22 4:11 pm Transcribed By: MEL Transcribed Date/Time: 06/25/22 4:11 pm DXA Skeletal system.axial Views for bone density * BHSPowerscribe , CIS S: TRANSCRIBE BHSPowerscriakiko , CIS S: TRANSCRIBE, VERIFY Fernie Centeno MD: VERIFY, VERIFY Fernie Centeno MD: VERIFY Event Display: Result: Authored Date: [id number] Bone Density Report Name: JOELLEN KING Age: 62 Sex: Female Ethnicity: White Date of : 1960 Indication: POSTMENOPAUSAL. Referring Provider: MARLY MENA Study: Bone densitometry was performed. Exam Date: June 23, 2022 Accession number: [id number] Bone Density: Region BMD T-score Z-score Classification AP Spine(L1-L4) 0.707 -3.1 -1.7 Osteoporosis Femoral Neck (Left) 0.584 -2.4 -1.1 Osteopenia Total Hip (Left) 0.668 -2.2 -1.3 Osteopenia World Health Organization criteria for BMD impression classify patients as: Normal (T-score at or above -1.0), Osteopenia (T-score between -1.0 and -2.5), or Osteoporosis (T-score at or below -2.5). 10-year Fracture Risk: FRAX not reported because: Some T-score at or below -2.5 Previous Exams: Region Exam Age BMD T-score BMD Change BMD Change Date g/cm2 vs Baseline vs Previous AP Spine(L1-L4) 06/23/2022 62 0.707 -3.1 10.8%* 10.8%* 06/19/2020 60 0.638 -3.7 Total Hip(Left) 06/23/2022 62 0.668 -2.2 0.1% 0.1% 06/19/2020 60 0.668 -2.2 Femoral Neck(Left) 06/23/2022 62 0.584 -2.4 -0.6% -0.6% 06/19/2020 60 0.587 -2.4 *Denotes significance at 95% confidence level, LSC for AP Spine = 0.022 g/cm2, LSC for Total Hip = 0.027 g/cm2 Clinical Information Provided by Patient: Smokes Has used the following medications: Vitamin D, Calcium Has the following medical conditions: Cancer Patient maximum height was 70.0 Menopause Age: 54 Onset of menses at age 17 Number of children 4 Impression: The patient has osteoporosis as determined by WHO criteria. Reported by: Fernie Centeno M.D. on 06/25/2022 4:10:00 PM. Dictated By: Fernie Centeno MD Dictated Date/Time: 06/25/22 4:11 pm Reviewed By: Fernie Centeno MD Signed By: Fernie Centeno MD Signed Date/Time: 06/25/22 4:11 pm Transcribed By: MEL Transcribed Date/Time: 06/25/22 4:11 pm Patient Care team information Care Team Personnel Name: Brijesh Tabares DO Position: Reference Physician Member Role: PCP Address: Address: [address] [place] [address] [place] [address]- Care Team Related Persons Name: SHON KING Address: home [address] [place] [id number]
--- OUTSIDE RECORDS SUMMARY | 2023-12-26 20:21 | XMS_ITS | Continuity of Care Document ---
Author Organization [facility] Address [address] [place] [address]- Care Team Providers Care Chainstitch Sewing Machine Operator Name Role Phone Raysa Brijesh KERR Primary Care Physician Encounter [facility] [place] Date(s): 09/22/23 - 10/22/23 [facility] [address] [place] [address] Allergies, Adverse Reactions, Alerts Substance Reaction Severity [...] Maintenance Start Date: 07/12/18 Status: Ordered Pen [place], 31 G x 5 mm BD Ultra Fine III See Instructions, # 100 each, Refills 1, Tot. Refills 1, Maintenance, Use daily with tymlos, 09/22/23 15:35:00 EDT, Supply, 171.5, cm, 08/04/23 11:09:00 EDT, Height Start Date: 09/22/23 Status: Ordered Tymlos 3120 mcg/1.56 mL subcutaneous solution = 80 mcg, Subcutaneous Injection, Daily, rotate injection sites, # 1.56 mL, 5 Refills, Maintenance,09/22/23 15:34:00 EDT, Solution, [facility], Partial fill upon [...] Reference Physician Member Role: PCP Address: Address: [address] [place] [address] [place] [address]- Care Team Related Persons Name: SHON KING Address: [address] [address]
--- OUTSIDE RECORDS SUMMARY | 2023-12-26 20:21 | XMS_ITS | Continuity of Care Document ---
Author Organization [facility] Address [address] [place] [address]- Care Team Providers Care Automatic Serging Machine Operator Name Role Phone Brijesh Tabares DO Primary Care Physician Encounter [facility] [place] Date(s): 04/30/19 - 05/10/19 [facility] [address] [place] [address]- [facility] Attending Physician: Marianne Vázquez Admitting Physician: Marianne Vázquez Referring Physician: AdmtrMarianne Allergies, Adverse Reactions, Alerts Substance Reaction Severity [...]
--- OUTSIDE RECORDS SUMMARY | 2023-12-26 20:21 | XMS_ITS | Continuity of Care Document ---
Author Organization [facility] Address [address] [place] [address]- Care Team Providers Care Direct Sales Professional Name Role Phone Brijesh Tabares DO Primary Care Physician Encounter [facility] [place] Date(s): 08/05/23 - 09/04/23 [facility] [address] [place] [address] Allergies, Adverse Reactions, Alerts Substance Reaction Severity Status amoxicillin extreme itching Active Pollen nasal congestion, post nasal drip Active Other Environmental Allergy seasonal: na rosalba congestion, post nasal drip, Active Immunizations Given and Recorded Vaccine Date [...] Reference Physician Member Role: PCP Address: Address: [address] [place] [address] [place] [address]- Care Team Related Persons Name: SHON KING Address: home [address] [place] [address]
--- OUTSIDE RECORDS SUMMARY | 2023-12-26 20:21 | XMS_ITS | Continuity of Care Document ---
Author Organization [facility] [place] Address [address] [facility] [place] [address]- Care Team Providers Care Bindery Leadperson Name Role Phone Brijesh Tabares DO Primary Care Physician Encounter 04/24/19 - 05/01/19 [facility] [address], [facility] [address] [place] [address]- [phone] Attending Physician: Shiv Torres MD Admitting Physician: [...]
--- OUTSIDE RECORDS SUMMARY | 2023-12-26 20:21 | XMS_ITS | Continuity of Care Document ---
Author Organization [facility] ter Address [address] [place] [address]- Care Team Providers Care Funds Development Director Name Role Phone Raysa Brijesh KERR Primary Care Physician Encounter [facility] [place] Date(s): 04/25/20 - 04/25/[address] [address] Discharge Disposition: A-D/C Home Attending Physician: Brenda Corey MD Admitting Physician: Brenda Corey MD Referring Physician: Brenda Corey MD Allergies, Adverse Reactions, Alerts Substance Reaction Severity Status NKA Active Immunizations Given and Recorded Vaccine Date Status Refusal Reason pneumococcal 23-valent vaccine 1 07/08/12 Given 1Early/Late Reason: Other : Medications atorvastatin 40 mg oral tablet 1 tablet = 40 mg, By Mouth, Daily in AM, 0 Refills, Maintenance Start Date: 07/12/18 Status: Ordered Results Radiology Reports * Exam Date Time Procedure Performing Provider Status 04/25/20 9:38 AM C-Arm < 1 Hour Hilda Akers; Aut h (Verified) Notes: (C-Arm < 1 Hour) Reason For Exam: ORIF R olecranon--TT 15min FT 2 sec RESULT: C-Arm < 1 Hour C-Arm < 1 Hour INDICATION: Reason: ORIF R olecranon--TT 15min FT 2 sec; Special Instructions: ORIF R olecranon--[id number] FT 2 sec COMPARISONS: None TECHNIQUE: Fluoroscopy support was provided. There was no radiologist in attendance. Fluoroscopy time: 2 seconds Technologist time: 15 minutes FINDINGS: Fluoroscopy support was provided. There was no radiologist in attendance. IMPRESSION: See above. WSN: [id number] Ordering Physician: Brenda Corey Dictated By: Reymundo Low MD Dictated Date/Time: 04/25/20 9:52 pm Reviewed By: Reymundo Low MD Signed By: Reymundo Low MD Signed Date/Time: 04/25/20 9:52 pm Transcribed By: MEL Transcribed Date/Time: 04/25/20 7:22 pm * Exam Date Time Procedure Performing Provider Status 04/25/20 9:38 AM Elbow 2 Views Right Hilda Akers ; Charisse (Verified) Notes: (Elbow 2 Views Right) Reason For Exam: ORIF R olecranon--TT 15min FT 2 sec RESULT: Elbow 2 Views Right Elbow 2 Views Right INDICATION / CLINICAL QUESTION: Reason: ORIF R olecranon--TT 15min FT 2 sec The acute fracture with 04/19/2020 resulting from a fall. TECHNIQUE: 3 images. COMPARISON: None. FINDINGS: Olecranon fracture has been treated by a sideplate medially and laterally. Multiple screws associated with each plate. Orthopedic hardware satisfactory position and intact. Grossly satisfactory positioning of bony fragments with fracture not clearly identified on this exam.. IMPRESSION: 1. Satisfactory intraoperative appearance at the end of ORIF olecranon fracture.. WSN: [id number] Ordering Physician: Brenda Corey Dictated By: Arley Rodríguez MD Dictated Date/Time: 04/25/20 10:07 a Reviewed By: Arley Rodríguez MD Signed By: Arley Rodríguez MD Signed Date/Time: 04/25/20 10:07 am Transcribed By: MEL Transcribed Date/Time: 04/25/20 10:05 am Vital Signs Most recent to oldest [Reference Range]: 1 2 3 Oxygen Saturation [94-100 %] 94 % (04/25/20 11:15 AM) 94 % (04/25/20 11:00 AM) 96 % (04/25/20 10:45 AM) Pulse Rate [55-90 bpm] 49 bpm *L* (04/25/20 7:10 AM) Blood Pressure [90-138/55-84 mm Hg] 102/62mm Hg (04/25/20 11:15 AM) 100/65mm Hg (04/25/20 11:00 AM) 96/78mm Hg (04/25/20 10:45 AM) Respiratory Rate [16-30 br/min] 19 br/min (04/25/20 11:15 AM) 16 br/min (04/25/20 11:00 AM) 16 br/min (04/25/20 10:45 AM) Temperature [96.8-100.4 DegF] 98.8 DegF (04/25/20 10:00 AM) 99.0 DegF (04/25/20 7:10 AM) Liters per Minute 4 L/min (04/25/20 10:00 AM) 2 L/min (04/25/20 7:50 AM) 4 L/min (04/25/20 7:45 AM) Mode of Delivery (Oxygen) Room air (04/25/20 11:00 AM) Room air (04/25/20 10:45 AM) Room air (04/25/20 10:30 AM) Blood pressure sites Arm, left (04/25/20 7:45 AM) Arm, left (04/25/20 7:39 AM) Temperature Route Temporal (04/25/20 10:00 AM) Temporal (04/25/20 7:10 AM) Dry Weight 66.7 kg (04/25/20 7:10 AM) Dry Weight Obtained Via Standing scale (04/25/20 7:10 AM)
--- OUTSIDE RECORDS SUMMARY | 2023-12-26 20:21 | XMS_ITS | Continuity of Care Document ---
Author Organization [facility] ter Address [address] [place] [address]- Care Team Providers Care Medical Instrument Cable Fabricator Name Role Phone Brijesh Tabares DO Primary Care Physician [place] [facility] [place] - 07/28/[address] [address]- Discharge Disposition: A-D/C Home Attending Physician: Shiv [...] opioid drug. Start Date: 07/23/21 Status: Ordered Vital Signs Most recent to oldest [Reference Range]: 1 2 3 Weight 63.2 kg (07/28/21 2:56 PM) Oxygen Saturation [94-100 %] 95 % (07/28/21 5:45 PM) 100 % (07/28/21 5:30 PM) 100 % (07/28/21 5:15 PM) Pulse Rate [55-90 bpm] 50 bpm *L* (07/28/21 2:56 PM) Blood Pressure [90-138/55-84 mm Hg] 138/70mm Hg (07/28/21 5:45 PM) 134/63mm Hg (07/28/21 5:30 PM) 141/70mm Hg *H* (07/28/21 5:15 PM) Respiratory Rate [16-30 br/min] 20 br/min (07/28/21 5:45 PM) 14 br/min *L* (07/28/21 5:30 PM) 20 br/min (07/28/21 5:15 PM) Temperature [96.8-100.4 DegF] 97.8 DegF (07/28/21 5:15 PM) 98.3 DegF (07/28/21 2:56 PM) Liters per Minute 6 L/min (07/28/21 5:15 PM) Mode of Delivery (Oxygen) Room air (07/28/21 6:45 PM) Room air (07/28/21 5:45 PM) Simple face mask (07/28/21 5:15 PM) Blood pressure sites Arm, right (07/28/21 2:56 PM) Temperature Route Temporal (07/28/21 5:15 PM) Temporal (07/28/21 2:56 PM) Dry Weight 63.2 kg (07/28/21 2:56 PM) Weight Obtained Via Standing scale (07/28/21 2:56 PM) Dry Weight Obtained Via Standing scale (07/28/21 2:56 PM)
--- OUTSIDE RECORDS SUMMARY | 2023-12-26 20:21 | XMS_ITS | Continuity of Care Document ---
Author Organization [facility] Address [address] [place] [address]- Care Team Providers Care Liaison Inspection Laboratory Assistant Name Role Phone Brijesh Tabares DO Primary Care Physician [phone] En[place] [facility] [place] Date(s[place] 07/16/20 - 08/15/[address] [address] Attending Physician: Marianne Vázquez Admitting Physician: Marianne Vázquez Referring Physician: Admtr, Ar8 Allergies, Adverse Reactions, Alerts Substance Reaction Severity Status Pollen Active Immunizations Given and Recorded Vaccine Date Status Refusal Reason pneumococcal 23-valent vaccine 1 07/08/12 Given 1Early/Late Reason: Other : Medications atorvastatin 40 mg oral tablet 1 tablet = 40 mg, By Mouth, Daily in AM, 0 Refills, Maintenance Start Date: 07/12/18 Status: Ordered
--- OUTSIDE RECORDS SUMMARY | 2023-12-26 20:21 | XMS_ITS | Continuity of Care Document ---
Author Organization [facility] Address [address] [place] [address]- Care Team Providers Care Dispensing Operator Name Role Phone Brijesh Tabares DO Primary Care Physician [phone] Encounter [facility] [place] Date(s): 08/22/23 - 09/21/23 [facility] [address] [place] [id number] Attending Physician: Marianne Vázquez Admitting Physician: AdmMarianne siegel Referring Physician: AdmtrChris8 Allergies, Adverse Reactions, Alerts Substance Reaction Severity [...] Reference Physician Member Role: PCP Address: Address: [address] [place] [address] [place] [address]- Care Team Related Persons Name: SHON KING Address: home [address] [place] [address]
--- OUTSIDE RECORDS SUMMARY | 2023-12-26 20:21 | XMS_ITS | Continuity of Care Document ---
Author Organization [facility] Address [address] [place] [address]- Care Team Providers Care Sour Bleaching Pleater Name Role Phone Brijesh Tabares DO Primary Care Physician Encounter [facility] [place] Date(s): 10/19/23 - 11/18/[address] [id number] Attending Physician: AdmMarianne siegel Admitting Physician: Admtr, Ar8 Referring Physician: Admtr, Ar8 Allergies, Adverse Reactions, [...] Maintenance Start Date: 07/12/18 Status: Ordered Pen [place], 31 G x 5 mm BD Ultra Fine III See Instructions, # 100 each, Refills 1, Tot. Refills 1, Maintenance, Use daily with tymlos, 09/22/23 15:35:00 EDT, Supply, 171.5, cm, 08/04/23 11:09:00 EDT, Height Start Date: 09/22/23 Status: Ordered Tymlos 3120 mcg/1.56 mL subcutaneous solution = 80 mcg, Subcutaneous Injection, Daily, rotate injection sites, # 1.56 mL, 5 Refills, Maintenance,09/22/23 15:34:00 EDT, Solution, [facility], Partial fill upon patient [...] Reference Physician Member Role: PCP Address: Address: [address] [place] [address] [place] [address]- Care Team Related Persons Name: SHON KING Address: home [address] [place] [id number]
--- OUTSIDE RECORDS SUMMARY | 2023-12-26 20:21 | XMS_ITS | Continuity of Care Document ---
Author Organization [facility] Address [address] [place] [address]- Care Team Providers Care Corrosion Engineer Name Role Phone Brijesh Tabares DO Primary Care Physician [phone] Encounter [facility] [place] Date(s): 08/05/23 - 09/04/23 [facility] [address] [place] [id number] Allergies, Adverse Reactions, Alerts Substance Reaction Severity [...] Reference Physician Member Role: PCP Address: Address: [address] [place] [address] [place] [address]- Care Team Related Persons Name: SHON KING Address: home [address] [place] [address]
--- OUTSIDE RECORDS SUMMARY | 2023-12-26 20:21 | XMS_ITS | Continuity of Care Document ---
Author Organization [facility] Address [address] [place] [address]- Care Team Providers Care Electric Detector Operator Name Role Phone Raysa KERRBrijesh Primary Care Physician [place] [facility] [place] Date(s): 07/24/21 - 07/24/[address] [id number] Discharge Disposition: A-D/C Home Attending Physician: [...] Exam Date Time Procedure Performing Provider Status 07/24/21 3:40 PM C-Arm < 1 Hour Houston Bingham; Auth (Vertwila fitiffanie) Notes: (C-Arm < 1 Hour) Reason For Exam: rt elbow RESULT: C-Arm < 1 Hour Elbow 2 Views Right, C-Arm < 1 Hour INDICATION: Reason: rt elbow COMPARISONS: 04/25/2020 TECHNIQUE: Fluoroscopy support was provided. There was no radiologist in attendance. FLUOROSCOPY TIME: 4.6 seconds EXPOSURE: .23 mGy TECHNOLOGIST TIME: 5 minutes FINDINGS: Single fluoroscopic view of the right elbow was submitted. Previously seen hardware has been removed. Please refer to operative note for full details. IMPRESSION: See above. . WSN: [id number] Ordering Physician: Brenda Corey Dictated By: Doug Nair MD Dictated Date/Time: 07/24/21 4:46 pm Reviewed By: Doug Nair MD Signed By: Doug Nair MD Signed Date/Time: 07/24/21 4:46 pm Transcribed By: MEL Transcribed Date/Time: 07/24/21 4:45 pm * Exam Date Time Procedure Performing Provider Status 07/24/21 3:40 PM Elbow 2 Views Right Houston Bingham; Auth (Verified) Notes: (Elbow 2 Views Right) Reason For Exam: rt elbow RESULT: Elbow 2 Views Right Elbow 2 Views Right, C-Arm < 1 Hour INDICATION: Reason: rt elbow COMPARISONS: 04/25/2020 TECHNIQUE: Fluoroscopy support was provided. There was no radiologist in attendance. FLUOROSCOPY TIME: 4.6 seconds EXPOSURE: .23 mGy TECHNOLOGIST TIME: 5 minutes FINDINGS: Single fluoroscopic view of the right elbow was submitted. Previously seen hardware has been removed. Please refer to operative note for full details. IMPRESSION: See above. . WSN: [id number] Ordering Physician: Brenda Corey Dictated By: Doug Nair MD Dictated Date/Time: 07/24/21 4:46 pm Reviewed By: Doug Nair MD Signed By: Doug Nair MD Signed Date/Time: 07/24/21 4:46 pm Transcribed By: MEL Transcribed Date/Time: 07/24/21 4:45 pm Vital Signs Most recent to oldest [Reference Range]: 1 2 3 Height 177.8 cm (07/24/21 1:33 PM) 177.8 cm (07/23/21 11:29 AM) Weight 63.4 kg (07/24/21 1:33 PM) 63.64 kg (07/23/21 11:29 AM) Oxygen Saturation [94-100 %] 100 % (07/24/21 5:30 PM) 100 % (07/24/21 5:15 PM) 99 % (07/24/21 5:00 PM) Pulse Rate [55-90 bpm] 51 bpm *L* (07/24/21 1:33 PM) Body Mass Index [18.5-24.99] 20.06 (07/24/21 1:33 PM) 20.13 (07/23/21 11:29 AM) Blood Pressure [90-138/55-84 mm Hg] 117/89mm Hg (07/24/21 5:15 PM) 111/55mm Hg (07/24/21 5:00 PM) 124/76mm Hg (07/24/21 4:45 PM) Respiratory Rate [16-30 br/min] 22 br/min (07/24/21 5:30 PM) 16 br/min (07/24/21 5:15 PM) 19 br/min (07/24/21 5:00 PM) Temperature [96.8-100.4 DegF] 97.4 DegF (07/24/21 4:15 PM) 98.7 DegF (07/24/21 1:33 PM) Liters per Minute 6 L/min (07/24/21 4:15 PM) Mode of Delivery (Oxygen) Room air (07/24/21 6:00 PM) Room air (07/24/21 4:45 PM) Simple face mask (07/24/21 4:15 PM) Blood pressure sites Arm, left (07/24/21 4:15 PM) Arm, left (07/24/21 1:33 PM) Temperature Route Temporal (07/24/21 4:15 PM) Temporal (07/24/21 1:33 PM) Dry Weight 63.4 kg (07/24/21 1:33 PM) Weight Obtained Via Standing scale (07/24/21 1:33 PM) Patient/family stated (07/23/21 11:29 AM) Dry Weight Obtained Via Standing scale (07/24/21 1:33 PM)
--- OUTSIDE RECORDS SUMMARY | 2023-12-26 20:22 | XMS_ITS | Patient Health Record ---
Author Organization Brijesh Tabares DO, FACP Address [address] [facility] [place] [id number] Care Team Providers Care Surgical Brace Maker Name Role Phone Brijesh Tabares Primary Care Provider ALLERGIES Allergen (clinical drug ingredient) Drug/Non Drug Allergy documented on EMR Reaction Allergy Type Onset Date Status amoxicillin Amoxicillin pruritis, rash Drug Allergy Active RESULTS Component Value Reference Range Notes Complete Blood Count Auto Di ff Reviewed date:08/02/2023 11:26:39 AM Interpretation:Abnormal Performing Lab:[facility], [address] [place] [phone] Notes/Report: White Blood Count 3.1 4.8-10.8 X10*3/uL Red Blood Count 4.60 4.20-5.50 X10*6/uL Hemoglobin 14.4 12.0-16.0 g/dl Hematocrit 42.3 37.0-47.0 % Mean Corpuscular Volume 92.0 80.0-98.0 fL Mean Corpuscular Hemoglobin 31.3 27.0-33.0 pg Mean Corpuscular HGB Conc 34.0 31.0-35.0 g/dl Red Cell Distribution Width 14.1 11.0-16.0 % Platelet Count 154 160-400 X10*3/uL Mean Platelet Volume 11.3 9.4-12.3 fL Neutrophils Percent Auto 56.7 45-73 % Imm Gran Pct Auto 0.0 0.0-0.4 % Lymphocytes Percent Auto 31.8 20-40 % Monocytes Percent Auto 8.2 2-11 % Eosinophils Percent Auto 2.3 0-4 % Basophils Percent Auto 1.0 0-2 % NRBC Pct Auto 0.0 0.0-0.2 /100WBC Neutrophils Absolute Auto 1.7 2.0-8.3 x10*3/u L Imm Gran Abs Auto 0.00 0.00-0.03 X10*3/uL Lymphocytes Absolute Auto 1.0 1.2-4.9 X10*3/u L Monocytes Absolute Auto 0.3 0.1-1.2 X10*3/uL Eosinophils Absolute Auto 0.1 0.0-0.4 X10*3/u L Basophils Absolute Auto 0.0 0.0-0.2 X10*3/uL NRBC Abs Auto 0.000 0.0-0.012 X10*3/uL Urinalysis and Microscopic Reviewed date:08/02/2023 10:42:52 AM Interpretation:Abnormal Performing Lab:[facility], [address] [place] [id number] Notes/Report: Color Urine Yellow Appearance Urine Clear PH 8.0 5.0-9.0 Glucose Urine UA Negative Negative mg/dL Urine Blood Negative Negative Specific [place] - Urine <= 1.005 1.005-1.025 Urine Protein Negative Neg-Trace mg/dL Urine Ketones Negative Negative mg/dL Nitrite Urine Negative Negative Leukocyte Esterase Urine Trace Negative RBC Urine 0-2 0-2 /HPF WBC Urine 0-5 0-5 /HPF Squamous Epithelial Cell Urine 0-2 0-2 /HPF Bacteria Urine None Seen None Seen Hyaline Casts Urine 0-2 0-2 /LPF Comprehensive [place]. Panel Fa st Reviewed date:08/02/2023 12:26:01 PM Interpretation:Abnormal Performing Lab:[facility], [address] [place] [phone] Notes/Report: Sodium 139 135-145 mmol/L Potassium 4.2 3.3-5.1 mmol/L Chloride 104 96-108 mmol/L Carbon Dioxide 28 22-29 mmol/L Anion Gap 11 12-20 Blood Urea Nitrogen 15 9-16 mg/dL Creatinine 0.71 0.5-1.4 mg/dL Estimated Glomerular Filt Rate > 60 NOTE: For -[place] individuals, multiply the result by 1.210. Chronic Kidney Disease: Estimated GFR < 60 mL/min/1.73m2 Severe Kidney Disease: Estimated GFR < 15 mL/min/1.73m2 Glucose Fasting 89 60-99 mg/dL Calcium 9.0 8.4-10.2 mg/dL Bilirubin Total 0.4 0.0-1.0 mg/dL Aspartate Amino Transferase 33 5-31 U/L Alanine Aminotransferase 28 0-31 U/L Total Protein 6.4 6.5-8.0 g/dL Albumin Level 3.9 3.5-5.0 g/dL Alkaline Phosphatase 86 39-117 U/L Lipid Panel Reviewed date:08/02/2023 12:26:01 PM Interpretation:Abnormal Performing Lab:[facility], [address] [place] [id number] Notes/Report: Triglycerides 41 <150 mg/dL Desirable Triglyceride: less than 150 mg/dL Borderline High Triglyceride 150-199 mg/dL High Triglyceride: 200-499 mg/dL Very High Triglyceride: greater than or equal to 5OO mg/dL Cholesterol 220 <200 mg/dL Desirable Cholesterol: less than 200 mg/dL Borderline High Cholesterol: 200-239 mg/dL High Cholesterol: greater than 239 mg/dL LDL Cholesterol Calculated 134 <100 mg/dL Desirable LDL: less than 100 mg/dL Near Optimal/Above Optimal LDL: 110-129 mg/dL Borderline High LDL: 130-159 mg/dL High LDL: 160-189 mg/dL Very High LDL: greater than or equal to 190 mg/dL HDL Cholesterol 78 >40 mg/dL Desirable HDL: greater than 40 mg/dL Note: This HDL assay may give artificially low results in patients with liver disease. Vitamin D 25-OH Total Reviewed date:08/02/2023 12:26:01 PM Interpretation:Normal Performing Lab:[facility], [address] [place] [id number] Notes/Report: Vitamin D 25-OH Total 84.7 >30 ng/mL Health Based Reference Values* < 20 ng/mL Deficient 20-30 ng/mL Insufficient > 30 ng/mL Sufficient *Cammy HERMAN. N Engl J Med. 2007;357:266-280 Care must be taken in interpreting Vitamin D results from different laboratories and methodologies. Published data demonstrated that results from patients undergoing hemodialysis may show a negative bias when tested with various automated 25-OH vitamin D assays when compared to LC-MS/MS. When testing samples from patients whose predominant form of Vitamin D is Vitamin D2, such as patients receiving Vitamin D2 supplementation, results that are subtherapeutic should be confirmed with another method such as LC-MS/MS. Thyroid Stimulating Hormone Reviewed date:08/02/2023 12:26:01 PM Interpretation:Normal Performing Lab:[facility], [address] [place] [id number] Notes/Report: Thyroid Stimulating Hormone 2.26 0.32-4.0 uIU/ mL TSH 3rd Generation ([facility]) Complete Blood Count Auto Di ff (Not yet reviewed by provider) Interpretation: Performing Lab:[facility], [address] [place] [phone] Notes/Report: White Blood Count 3.8 4.8-10.8 X10*3/uL Red Blood Count 4.23 4.20-5.50 X10*6/uL Hemoglobin 12.9 12.0-16.0 g/dl Hematocrit 38.4 37.0-47.0 % Mean Corpuscular Volume 90.8 80.0-98.0 fL Mean Corpuscular Hemoglobin 30.5 27.0-33.0 pg Mean Corpuscular HGB Conc 33.6 31.0-35.0 g/dl Red Cell Distribution Width 14.6 11.0-16.0 % Platelet Count 144 160-400 X10*3/uL Mean Platelet Volume 10.4 9.4-12.3 fL Neutrophils Percent Auto 52.0 45-73 % Imm Gran Pct Auto 0.3 0.0-0.4 % Lymphocytes Percent Auto 37.1 20-40 % Monocytes Percent Auto 8.7 2-11 % Eosinophils Percent Auto 1.1 0-4 % Basophils Percent Auto 0.8 0-2 % NRBC Pct Auto 0.0 0.0-0.2 /100WBC Neutrophils Absolute Auto 2.0 2.0-8.3 x10*3/u L Imm Gran Abs Auto 0.01 0.00-0.03 X10*3/uL Lymphocytes Absolute Auto 1.4 1.2-4.9 X10*3/u L Monocytes Absolute Auto 0.3 0.1-1.2 X10*3/uL Eosinophils Absolute Auto 0.0 0.0-0.4 X10*3/u L Basophils Absolute Auto 0.0 0.0-0.2 X10*3/uL NRBC Abs Auto 0.000 0.0-0.012 X10*3/uL Prothrombin Time INR (Not ye t reviewed by provider) Interpretation: Performing Lab:[facility], [address] [place] [id number] Notes/Report: Prothrombin Time 11.6 10.9-12.4 SEC INTERNATIONAL NORM RATIO 1.0 0.9-1.1 INTERNATIONAL NORMALIZED RATIO (INR) REFERENCE RANGES Reference Range For patients not on anticoagulant therapy: 0.9 - 1.1 INR ranges for oral anticoagulant therapy: For prevention and treatment of venous thrombosis and pulmonary embolism: 2.0 - 3.0 For acute myocardial infarction with aspirin therapy: 2.0 - 3.0 For acute myocardial infarction without aspirin therapy: 3.0 - 4.0 For patients with mechanical prosthetic heart valves: 2.5 - 3.5 Partial Thromboplastin Time (Not yet reviewed by provider) Interpretation: Performing Lab:[facility], [address] [place] [id number] Notes/Report: Partial Thromboplastin Time 31.2 26.0-36.8 SEC For information regarding the monitoring of direct thrombin inhibitors, please refer to Pharmacy. Comprehensive Met. Panel (No t yet reviewed by provider) Interpretation: Performing Lab:[facility], [address] [place] [id number] Notes/Report: Sodium 139 135-145 mmol/L Potassium 3.8 3.3-5.1 mmol/L Chloride 103 96-108 mmol/L Carbon Dioxide 28 22-29 mmol/L Anion Gap 12 12-20 Blood Urea Nitrogen 21 9-16 mg/dL Creatinine 0.71 0.5-1.4 mg/dL Creatinine Clr Calc Pharmacy 77.4 Provided height and weight: 177.8 cm, 58.967 kg. eGFR (calculated from the MDRD study equation) and eCrCl (calculated from the Cockcroft-Gault equation) are based on different parameters and may not yield comparable results. If eCrCl result is absurd, please check patient's height/weight. Estimated Glomerular Filt Rate > 60 NOTE: For -[place] individuals, multiply the result by 1.210. Chronic Kidney Disease: Estimated GFR < 60 mL/min/1.73m2 Severe Kidney Disease: Estimated GFR < 15 mL/min/1.73m2 Glucose Random 88 60-115 mg/dL Calcium 9.7 8.4-10.2 mg/dL Bilirubin Total 0.6 0.0-1.0 mg/dL Aspartate Amino Transferase 35 5-31 U/L Alanine Aminotransferase 30 0-31 U/L Total Protein 6.6 6.5-8.0 g/dL Albumin Level 4.0 3.5-5.0 g/dL Alkaline Phosphatase 85 39-117 U/L UA CC w/rflx Micro + Cult (N ot yet reviewed by provider) Interpretation: Performing Lab:[facility], [address] [place] [id number] Notes/Report: Urine, Clean Catch Color Urine Yellow Appearance Urine Clear PH 6.5 5.0-9.0 Glucose Urine UA Negative Negative mg/dL Urine Blood Negative Negative Specific [place] - Urine <= 1.005 1.005-1.025 Urine Protein Negative Neg-Trace mg/dL Urine Ketones Negative Negative mg/dL Nitrite Urine Negative Negative Leukocyte Esterase Urine Negative Negative REASON FOR REFERRAL Reason Osteoporosis Diagnosis 1 Age-related osteopor osis without current pathological fracture (M81.0) Referral Organization Brijesh Franks FACP Referring Provider First Name Brijesh Referring Provider Last Name Raysa Referring Provider Speciality Internal M edicine Referred Provider Nicholas Chvaez Referred Provider Specialty Endocrinolog y General Notes Sherley Purvis 024 08:34:55 AM EDT > referral faxed; spedialist's office will call patient to schedule an appointment., Yessica Baires 06/22/2023 10:19:46 AM EDT > Referral faxed prior to scheduling. Referral Priority Routine Reason vertigo Diagnosis 1 Vertigo (R42) Referral Organization Brijesh Franks FACP Referring Provider First Name Brijesh Referring Provider Michael Name Raysa Referring Provider Speciality Internal M edicine Referred Provider Johnny Romo Referred Provider Specialty Otology, Lar yngology, Rhinology General Notes Yessica Baires 12:22:16 PM EDT > Referral faxed prior to scheduling. Referral Priority Routine Referral Appointment Date 11/15/2023 Reason Vestibular physical therapy Diagnosis 1 Vertigo (R42) Referral Organization Brijesh Franks FACP Referring Provider First Name Brijesh Referring Provider Last Name Raysa Referring Provider Speciality Internal M edicine Referred Provider [facility] Referred Provider Specialty Physical The rapist General Notes FaySusan greenan 024 11:32:10 AM EDT > referral faxed. Specialist's office will call patient to schedule appointments. Referral Priority Routine Reason F/U colonoscopy Diagnosis 1 Colon cancer screeni ng (Z12.11) Referral Organization Brijesh Franks FACP Referring Provider First Name Brijesh Referring Provider Last Name Raysa Referring Provider Speciality Internal M edicine Referred Provider Brijesh Levi Referred Provider Specialty Gastroentero logy General Notes Susan Purvisan 024 01:36:39 PM EDT > referral faxed. Patient aware specialist's office will call her to schedule appointment. Referral Priority Routine MEDICATIONS Medication SIG (Take, Route, Frequency, Duration) Notes Start Date End Date Status Biotin 1000 MCG 1 tablet Orally Once a day Active Multivitamins 1 capsule Orally Onc e a day Active Montelukast Sodium 10 MG 1 tablet Orally Once a day Active Atorvastatin Calcium 40 MG 1 tablet Oral ly Once a day Active IMMUNIZATIONS Vaccine Route Administration Date Status Comme nts TDaP IM Intramuscular 10/02/2018 Administered Influenza Quad Unknown 12/06/2018 Administered Influenza Quad Unknown 12/13/2019 Administered Influenza Quad Unknown 11/29/2020 Administered Influenza Quad Unknown 11/28/2021 Administered COVID-19 Pfizer BioNTech Unknown 06/06/2020 Administere d COVID-19 Pfizer BioNTech Unknown 03/18/2021 Administere d Influenza Quad Unknown 11/30/2017 Administered COVID-19 Pfizer BioNTech Unknown 05/15/2020 Administere d Influenza Unknown 01/23/2014 Refused Influenza Unknown 01/31/2015 Refused SOCIAL HISTORY Tobacco Use: Social History Observation Description Date Details (start date - stop date) Former Smoker NA - NA Sex Assigned At : Social History Observation Description Sex Assigned At Unknown Tobacco Use/Smoking Question Answer Notes Patient is a former smoker How long has it been since y ou last smoked? > 10 years Additional Findings: Tobacco Non-User Fo rmer smoker, currently using no form of tobacco Alcohol Screen Question Answer Notes Did you have a drink contain ing alcohol in the past year? Yes How often did you have a dri nk containing alcohol in the past year? Monthly or less (1 point) How many drinks did you have on a typical day when you were drinking in the past year? 1 or 2 drinks (0 point) How often did you have 6 or more drinks on one occasion in the past year? Never (0 point) Points 1 Interpretation Negative PROBLEMS Problem Type ICD Code Onset Dates Problem Status W/U Status Risk SNOMED Code Notes Problem Age-related osteoporosis without current pathological fracture (M81.0) Active confirmed 70104891 Problem Vertigo (R42) Active confirmed Vertigo (646794160) Problem Anxiety associated w ith depression (F41.8) Active confirmed 915927023 Problem Periumbilical abdomi nal pain (R10.33) Active confirmed 267305482 Problem Hypercholesterolemia (E78.00) Active confirmed 16039116 Problem Lower abdominal pain (R10.30) Active confirmed 09587025 Problem Asymptomatic varicos e veins of both lower extremities (I83.93) Active confirmed 03701005 VITAL SIGNS Blood pressure diastolic 58 mm Hg 11/09/2023 Height 67 in 11/09/2023 Blood pressure systolic 96 mm Hg 11/09/2023 Weight 131 lbs 11/09/2023 BMI 20.52 kg/m2 11/09/2023 Encounters Encounter Location Date Provider Diagnosis Brijesh Tabares DO, [address] [id number] 03/30/2023 Brijesh Tabares DO, [address] [id number] 05/11/2023 Brijesh Tabares Encounter for genera l adult medical examination without abnormal findings Z00.00 ; Hypercholesterolemia E78.00 and Age-related osteoporosis without current pathological fracture M81.0 Brijesh Tabares DO, [address] [id number] 11/09/2023 Brijesh Tabares Hypercholesterolemia E78.00 ; Age-related osteoporosis without current pathological fracture M81.0 and Vertigo R42 Brijesh Tabares DO [address] [id number] 04/20/2023 Brijesh Tabares DO [address] [id number] 06/21/2023 Brijesh Tabares DO, [address] [id number] 09/09/2023 Brijesh Tabares DO, [address] [id number] 09/19/2023 Brijesh Tabares DO, [address] [id number] 09/23/2023 Brijesh Tabares DO, [address] [id number] 09/27/2023 Brijesh Tabares DO, [address] [id number] 09/28/2023 Brijesh Tabares DO, [address] [id number] 11/18/2023 Brijesh Raysa Colon cancer screeni ng Z12.11 Brijesh Tabares DO, [address] [id number] 12/26/2023 Brijesh Raysa ASSESSMENTS Encounter Date Diagnosis Assessment Notes Treatment Notes Treatment Clinical Notes 05/11/2023 Encounter for genera l adult medical examination without abnormal findings (ICD-10 - Z00.00) 05/11/2023 Hypercholesterolemia (ICD-10 - E78.00) 11/09/2023 Age-related osteopor osis without current pathological fracture (ICD-10 - M81.0) Currently being treated by Endocrinology 11/09/2023 Hypercholesterolemia (ICD-10 - E78.00) 11/18/2023 Colon cancer screeni ng (ICD-10 - Z12.11) 05/11/2023 Age-related osteopor osis without current pathological fracture (ICD-10 - M81.0) 11/09/2023 Vertigo (ICD-10 - R42) Is se eing ENT next week. Discharge Summary from her July hospitalization faxed to ENT. They need to assess her left tonsil PLAN OF TREATMENT Pending Test Test Name Order Date Complete Blood Count Auto Diff Prothrombin Time INR 12/26/2023 Partial Thromboplastin Time 12/26/2023 Comprehensive Met. Panel 12/26/2023 UA CC w/rflx Micro + Cult 12/26/2023 Next Appt Details Provider Name:Brijesh Crocker mary, 05/08/2024 03:30:00 PM, [address] [place] [address], [phone], Insurance Providers Payer Name Payer Address Payer Phone Subscriber Number Group Number Insured Name Patient Relationship to Insured Coverage Start Date Coverage End Date [facility] [address] [place], [place] [id number] Peyton Muñoz Self - patient is the insured MEDICAL (GENERAL) HISTORY Medical History History ICD Code hypercholesterolemia varicose veins renal lithiasis microscopic hematuria with a negative ev aluation 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
--- OUTSIDE RECORDS SUMMARY | 2023-12-26 20:22 | XMS_ITS ---
Author Organization Brijesh Tabares DO, [facility] Address [address] [place], [place] [address] Care Team Providers Care Senior Designer/Art Director Name Role Phone Brijesh Tabares Primary Care Provider [phone] REASON FOR VISIT Message Encounters Encounter Location Date Provider Diagnosis Brijesh Tabares DO, FACP [address] [place] [id number] 12/26/2023 Brijesh Tabares PLAN OF TREATMENT Next Appt Details Provider Name:Brijesh hernandez, 05/08/2024 03:30:00 PM, [address] [place], [place], [phone],
--- OUTSIDE RECORDS SUMMARY | 2023-12-26 20:22 | XMS_ITS ---
Author Organization Brijesh Tabares DO, FACP Address [address] [place] [id number] Care Team Providers Care Natural Resources Instructor Name Role Phone Brijesh Tabares Primary Care Provider ALLERGIES Allergen (clinical drug ingredient) Drug/Non Drug Allergy documented on EMR Reaction Allergy Type Onset Date Status amoxicillin Amoxicillin pruritis, rash Drug Allergy Active REASON FOR VISIT 6 month f/u, Follow up hypercholesterolemia, Age-related osteoporosis without current pathological fracture MEDICATIONS Medication SIG (Take, Route, Frequency, Duration) Notes Start Date End Date Status Biotin 1000 MCG 1 tablet Orally Once a day Active Multivitamins 1 capsule Orally Onc e a day Active Montelukast Sodium 10 MG 1 tablet Orally Once a day Active Atorvastatin Calcium 40 MG 1 tablet Oral ly Once a day Active SOCIAL HISTORY Tobacco Use: Social History Observation [...] Never (0 point) Points 1 Interpretation Negative VITAL SIGNS BMI 20.52 kg/m2 11/09/2023 Blood pressure systolic 96 mm Hg 11/09/19 24 Blood pressure diastolic 58 mm Hg 024 Height 67 in 11/09/2023 Weight 131 lbs 11/09/2023 Encounters Encounter Location Date Provider Diagnosis Brijesh Tabares , [address] [id number] 11/09/2023 Brijesh Tabares Hypercholesterolemia E78.00 ; Age-related osteoporosis without current pathological fracture M81.0 and Vertigo R42 ASSESSMENTS Encounter Date Diagnosis Assessment Notes Treatment Notes Treatment Clinical Notes 11/09/2023 Hypercholesterolemia (ICD-10 - E78.00) 11/09/2023 Age-related osteopor osis without current pathological fracture (ICD-10 - M81.0) Currently being treated by Endocrinology 11/09/2023 Vertigo (ICD-10 - R42) Is se eing ENT next week. Discharge Summary from her July hospitalization faxed to ENT. They need to assess her left tonsil PLAN OF TREATMENT Medication Medication Name Sig Start Date Stop Date Notes Biotin 1000 MCG 1 tablet Orally Once a day Multivitamins 1 capsule Orally Once a day Montelukast Sodium 10 MG 1 tablet Orally Once a day Atorvastatin Calcium 40 MG 1 tablet Orally Once a day Treatment Notes Assessment Notes Age-related osteoporosis wit hout current pathological fracture Currently being treated by Endocrinology Vertigo Is seeing ENT next w [place]. Discharge Summary from her July hospitalization faxed to ENT. They need to assess her left tonsil Next Appt Details Follow Up: 6 Months, Reason: follow up visit Provider Name:Brijesh Crocker mary, 05/08/2024 03:30:00 PM, [address] [place] [address], [id number], Progress Notes * Examination Category Sub-Category Detail Notes General Examination GENERAL APPEARANCE: in no ac soboba distress, well developed, well nourished HEAD: normocephalic, atrau matic HEART: no murmurs, regular rate and rhythm, S1, S2 normal LUNGS: clear to auscultatio n bilaterally ABDOMEN: normal, bowel sounds present, soft, nontender, nondistended SKIN: warm and dry EXTREMITIES: no edema PSYCH: alert, oriented, cog nitive function intact
--- OUTSIDE RECORDS SUMMARY | 2023-12-26 20:22 | XMS_ITS ---
Author Organization [facility] Address [address] [place] [address] Care Team Providers Care Eyelet Riveter Name Role Phone Raysa HAMMER, Brijesh Primary Care Provider Unavail able Black, Katrin Unavailable [phone] REASON FOR VISIT 1 LG/Wide Gel Tube Encounters Encounter Location Date Provider Diagnosis [facility] [address] [place] [address] 02/22/2023 Katrin Black PLAN OF TREATMENT No Information
--- OUTSIDE RECORDS SUMMARY | 2023-12-26 20:22 | XMS_ITS ---
Author Organization Brijesh Tabares DO, [facility] Address [address] [place] [phone] Care Team Providers Care Spanner Operator Name Role Phone Brijesh Tabares Primary Care Provider REASON FOR VISIT Needs referral Encounters Encounter Location Date Provider Diagnosis Brijesh Tabares DO, [address] [id number] 11/18/2023 Brijesh Tabares Colon cancer screening Z12.11 ASSESSMENTS Encounter Date Diagnosis Assessment Notes Treatment Notes Treatment Clinical Notes 11/18/2023 Colon cancer screening (ICD-10 - Z12.11) PLAN OF TREATMENT Next Appt Details Provider Name:Brijesh hernandez, 05/08/2024 03:30:00 PM, [address] [place] [address], [phone],
--- OUTSIDE RECORDS SUMMARY | 2023-12-26 20:22 | XMS_ITS | Patient Health Record ---
Author [facility] Address [address] [facility] [address] to[address] [facility] [place] [address] Care Team Providers Care Nursing Home Assistant Administrator Name Role Phone Brijesh Tabares MD Primary Care Provider Unavail able Katrin Dubon Unavailable [phone] ALLERGIES Allergen (clinical drug ingredient) Drug/Non Drug Allergy documented on EMR Reaction Allergy Type Onset Date Status Seasonale Unknown Drug Allergy Active REASON FOR REFERRAL No Information MEDICATIONS Medication SIG (Take, Route, Frequency, Duration) Notes Start Date End Date Status Atorvastatin Calcium Active Vitamin D Active Escitalopram Oxalate 10 MG 1 tablet Orally Once a day Not-Taking Multivitamin Active Collagen Active Biotin Active Vitamin C Active Sertraline HCl Not-T aking Turmeric Active SOCIAL HISTORY Tobacco Use: Social History Observation Description Date Details (start date - stop date) Former Smoker NA - NA Sex Assigned At : Social History Observation Description Sex Assigned At Unknown Tobacco Use/Smoking Question Answer Notes Are you a: former smoker How long has it been since you last smoked? < 1 month Additional Findings: Tobacco Non-User Current no n-smoker Alcohol Screen Question Answer Notes Did you have a drink contain ing alcohol in the past year? Yes How often did you have a dri nk containing alcohol in the past year? Monthly or less (1 point) Points 1 Interpretation Negative Tobacco use other than smoking: Question Answer Notes Are you an other tobacco user? No PROBLEMS Problem Type ICD Code Onset Dates Problem Status W/U Status Risk SNOMED Code Notes Problem Hallux valgus (acquired), right foot (M20.11) Active confirmed Acquired hallux valgus (58477873) Problem Other hammer toe(s) (acquired), right foot (M20.41) Active confirmed Acquired hammer toe of right foot ([id number] 105) Problem Other hammer toe(s) (acquired), left foot (M20.42) Active confirmed Acquired hammer toe of left foot ([id number] 103) VITAL SIGNS Height 5ft 10in in 12/27/2022 Weight 130 lbs 12/27/2022 BMI 18.65 kg/m2 12/27/2022 Encounters Encounter Location Date Provider Diagnosis [facility] [address] [address] 12/27/2022 Katrin Black Tinea unguium B35.[address] [facility] [address] 02/22/2023 Katrin Black ASSESSMENTS Encounter Date Diagnosis Assessment Notes Treatment Notes Treatment Clinical Notes 12/27/2022 Tinea unguium (ICD-10 - B35.1) PLAN OF TREATMENT Pending Test Test Name Order Date [id number] NAIL, 1-5 02/27/2018 [id number] NAIL, 1-5 12/17/2019 [id number] NAIL, 1-5 03/28/2017 Nail Panel 03/28/2017 Insurance Providers Payer Name Payer Address Payer Phone Subscriber Number Group Number Insured Name Patient Relationship to Insured Coverage Start Date Coverage End Date [facility] [address] [place] [address] [id number] Muñoz Self - patient is the insured MEDICAL (GENERAL) HISTORY Medical History History ICD Code Anxiety CAD (Cholesterol) breast cancer Depression Headaches Migraines Osteoporosis Surgical History Surgery Date(Month/Year) bilateral mastectomy vein ligation
--- OUTSIDE RECORDS SUMMARY | 2023-12-26 20:22 | XMS_ITS ---
Author Organization [facility] Address [address] [place] [address] Care Team Providers Care Ehs Specialist Name Role Phone Raysa HAMMER, Brijesh Primary Care Provider Unavail able Black, Katrin Unavailable [phone] ALLERGIES Allergen (clinical drug ingredient) Drug/Non Drug Allergy documented on EMR Reaction Allergy Type Onset Date Status Seasonale Unknown Drug Allergy Active REASON FOR VISIT PCP - 09/2022, Painful Nail(s) MEDICATIONS Medication SIG (Take, Route, Frequency, Duration) Notes Start Date End Date Status Atorvastatin Calcium Active Vitamin D Active Escitalopram Oxalate 10 MG 1 tablet Orally Once a day Not-Taking Biotin Active Sertraline HCl Not-T aking Multivitamin Active Collagen Active Vitamin C Active Turmeric Active SOCIAL HISTORY Tobacco Use: Social [...] Are you an other tobacco user? No VITAL SIGNS Height 5ft 10in in 12/27/2022 Weight 130 lbs 12/27/2022 BMI 18.65 kg/m2 12/27/2022 Encounters Encounter Location Date Provider Diagnosis [facility] [address] [place] [address] 12/27/2022 Katrin Black Tinea unguium B35.1 ASSESSMENTS Encounter Date Diagnosis Assessment Notes Treatment Notes Treatment Clinical Notes 12/27/2022 Tinea unguium (ICD-10 - B35.1) PLAN OF TREATMENT Next Appt Details Follow Up: prn, Reason: Progress Notes * Examination Category Sub-Category Detail Notes Neurological SENSORY: Neurological exa m reveals intact sensorium, pain sensation normal, vibration sensation intact, pinprick sensation is normal in the lower extremities, Pt denies, anesthesia, burning, paresthesia, tingling, B/L Dermatologic SKIN FINDINGS: Skin exam reveal s normal texture, elasticity, and tugor. There are no masses. The interspaces are clear General Examination GENERAL APPEARANCE: Reveals a pleasant, alert, well nourished, well developed, well hydrated individual, who demonstrates proper attention to hygene/body habitus, and is in no acute distress ORIENTED: person, place, and t toshia Vascular DP PULSES(B): 2/4, B/L PT PULSES(B): 2/4, B/L VARICOSITIES: present, moderate, n onpainful, B/L Nails NAILS are: Elongated, overg rown, dystrophic, T1, T6 , no evidence of remaining fungus , nonediscolored and none friable with no crumbly malodorous subungual debris, History and Physical Notes * HPI (History of Present Illness) Category Sub-Category Detail Notes Painful Nails Onset/Cause: unknown Course: improved Duration: several years Location: 2nd toe. Both feet Nature: discolored. tender Treatments: Topical mediation pe r Pathogenius Comprehensive DNA sequencing , Formula 7 , relates adherence to recom tx Severity/Quality: Mild. Pt States Last PCP Visit: Date:: 11/03/2021
[2023-12-26 20:34] VITALS: BP 113/59; PULSE 50; RESP 20; TEMP 36.4; O2SAT 98
--- NOTE | 2023-12-26 20:41 | PC.NURSE ---
Pt ambulatory to RM 3 from . Assumed care of pt at this time. A&Ox3 skin pwd respirations even unlabored, VSS. Endorsing left groin pain intermittent and non radiating x 1 month. Denies accompanying symptoms. Also endorsing lower abd discomfort more on left than right today. Abd soft NT. Denies N/V/D. Labs resulted from WR, awaiting primary provider eval, aware of plan of care.
[2023-12-26] MEDS: iohexoL 350 MG/ML 100 ML INFUS..BTL 85 ML IV (21:06)
[2023-12-26 22:13] VITALS: BP 116/66; PULSE 66; RESP 16; TEMP 36.4; O2SAT 97
[2023-12-27] VITALS: BP 126/73; PULSE 66; RESP 16; TEMP 36.6; O2SAT 98
--- NOTE | 2023-12-27 00:06 | PC.NURSE ---
CT results received, awaiting MD reeval.
[2023-12-27 00:23] VITALS: BP 116/66; PULSE 66; RESP 16; TEMP 36.4; O2SAT 97
== END 2023-12-27 00:24 | disposition home or self-care (01) ==
PROVIDERS: Physician Assistant; Emergency Provider Emergency Medicine; PCP Internal Medicine
DX: R10.30 Lower abdominal pain, unspecified (principal)
CPT/HCPCS: 36415; 74177; 80053; 81003; 85025; 85610; 85730; 99284; Q9967

== ENCOUNTER 2024-05-08 15:33 | Outpatient (AMB) | payer BC, SELFPAY ==
--- NOTE | 2024-05-08 15:33 | A.OFFPC_ITS ---
Vital Signs 05/08/24 15:36 Height 5 ft 9 in Weight 134 lb BMI 19.8 BP 118/66 Respiration 16 Pulse 66 Pulse Source Pulse Oximeter Temp 97.6 F Temp Source Temporal Artery Scan Pulse Oximetry (%) 96 Oxygen Delivery Method Room Air Intake Visit Reasons: 6 month follow up Electricity Trading Analyst Required: No Accompanied by: Self / Same As Patient Allergies amoxicillin Allergy (Verified 05/08/24 15:34) Itching Tobacco use date assessed: 05/08/24 Dental Screening Dental Screen Date: 05/08/24 Did you have a dental visit in the last 12 months?: Yes Did you have a dental problem in the last 6 months where you did not have access to dental care?: No PFSH Medical History (Updated 05/08/24 @ 16:19 by Didier Dykes MD) Osteoporosis High cholesterol Family History (Updated 05/08/24 @ 15:44 by ROBY Arroyo) Father Pre-diabetes Heart disease Alcohol abuse Leukemia Mother Breast cancer Lung cancer Social History (Updated 05/08/24 @ 15:44 by ROBY Arroyo) Housing: House Alcohol intake: current Alcohol intake frequency: holidays/special occasions only Patient Tobacco Use Status: Former Tobacco user service: No Current occupational status: employed Cognitive needs: No Hearing needs: No Vision needs: Yes (rx contacts/glasses) Questionnaire PHQ-9 Over the last 2 weeks, how often have you been bothered by any of the following problems? 1. Little interest or pleasure in doing things: not at all 2. Feeling down, depressed, or hopeless: not at all 3. Trouble falling or staying asleep, or sleeping too much: not at all 4. Feeling tired or having little energy: not at all 5. Poor appetite or overeating: not at all 6. Feeling bad about yourself - or that you are a failure or have let yourself or your family down: not at all 7. Trouble concentrating on things, such as reading the newspaper or watching television: not at all 8. Moving or speaking so slowly that other people could have noticed. Or the opposite - being so fidgety or restless that you have been moving around a lot more than usual: not at all 9. Thoughts that you would be better off or of hurting yourself in some way: not at all Total score: 0 Source: Developed by Raquel Langford Kurt Kroenke and colleagues, with an educational elijah from [employer] 1. Thrive Questionnaire Date Thrive assessed: 05/08/24 I am a: Patient What is your living situation today?: I have a steady place to live Within the past 12 months, did the food you bought not last and you didn't have the money to get more?: Never true Within the past 12 months, did you worry whether your food would run out before you got money to buy more?: Never true Do you have trouble paying for medicines?: No Do you have trouble getting transportation to medical appointments?: No Do you have trouble paying your heating and electricity bill?: No Do you have trouble taking care of your child, family member or friend?: No Do you have trouble with day-to-day activities such as bathing, preparing meals, shopping, managing finances, etc.?: No Are you currently unemployed and looking for a job?: No Are you interested in more education?: No Please select the resources that you would like help with: None THRIVE Score: 0 AUDIT C Alcohol Use Questionnaire (AUDIT-C) 1. How often do you have a drink containing alcohol?: Monthly or less 2. How many drinks containing alcohol do you have on a typical day when you are drinking?: 1 or 2 3. How often do you have six or more drinks on one occasion?: Never Total Score: 1 SWATI-7 AMB Questionnaire SWATI-7 Date SWATI - 7 assessed: 05/08/24 Feeling nervous, anxious, or on edge: 1 = Several days Not being able to stop or control worryin = Not at all Worrying too much about different things: 1 = Several days Trouble relaxin = Not at all Being so restless that it is hard to sit still: 3 = Nearly every day Becoming easily annoyed or irritable: 3 = Nearly every day Feeling afraid as if something awful might happen: 0 = Not at all Total SWATI-7 score (0-4 normal; 5-9 mild; 10-14 moderate; 15-21 severe): 8 Source: Developed by Raquel Langford Kurt Kroenke and colleagues, with an educational elijah from [employer] 1. Physical exam (Primary Care) Vital Signs: Last Vital Signs Temp 97.6 F 05/08/24 15:36 Pulse 66 05/08/24 15:36 Resp 16 05/08/24 15:36 BP 118/66 05/08/24 15:36 Pulse Ox 96 05/08/24 15:36 Oxygen Delivery Method Room Air 05/08/24 15:36 BMI result Body Mass Index 19.8 Tobacco/Smoking Status: Tobacco use Status Tobacco use date assessed 05/08/24 05/08/24 15:46 Patient Tobacco Use Status Former Tobacco user 05/08/24 15:46 PHQ-9: PHQ-9 Score PHQ-9: Total score 0 05/08/24 15:46 Thrive Assessment: Date of Thrive Assessment Date Thrive assessed 05/08/24 05/08/24 15:46 Coding Level of Care Code New Pt Level 4 (77563) Complex EM visit Add On G2211 Diagnoses High cholesterol E78.00 Osteoporosis M81.0 Assessment & Plan Assessment & Plan (1) High cholesterol: Code(s): E78.00 - Pure hypercholesterolemia, unspecified Category: Medical Plan: BW ordered. Will call with results (2) Osteoporosis: Code(s): M81.0 - Age-related osteoporosis without current pathological fracture Category: Medical Plan: Continue current management Plan History of Present Illness The patient is a 64-year-old female presenting with follow-up concerns related to fatigue and neck soreness. She reports a general feeling of slowing down and increased tiredness, which she attributes to aging. Soreness in her neck is noted but without a specific cause mentioned. She has a complex medical history that includes a double mastectomy in response to breast cancer diagnosed in 2007, with completion around [id number]. The patient reports longstanding venous insufficiency, necessitating multiple procedures over the years, with the condition beginning before her first . Recent medical attention included vein closure treatment on the day o f the visit. She has experienced significant fractures due to falls, including a wrist fracture and a more serious elbow fracture, which required surgical repair with hardware. Following these incidents, osteoporosis was diagnosed, particularly affecting her back and left hip. Previous osteoporosis management included a course of Timlos, which she has completed. As she considers further treatment with Prolia, she has voiced concern due to past dental complications and bone grafting from an earlier accident. Awaiting a second bone density scan in June, she also consults with a specialist focusing on natural osteoporosis approaches. The patient has noted that she has lagged behind in routine blood work, which may relate to her fatigue. Social History - Lives with family, as she mentioned two sons, one turning 27, the other 22 in August. - Engages in regular walking exercise, even during challenging weather conditions. - Expresses interest in alternative and natural therapies for osteoporosis. - Previous significant dental reconstructive work, impacting her current therapeutic considerations. - Active involvement in management of personal and family health concerns, as evidenced by discussions regarding transitioning her son from pediatric care. Review of Systems - Musculoskeletal: Reports neck soreness, history of fractures. - Hematologic: Concern for anemia, no recent blood work. Physical Exam General: Appearance normal, both eyes and all related structures Nutritional Appearance: Well nourished Orientation/consciousness: Patient oriented x3 Limitations: No limitations Head: Normal to inspection Neck: Sore Chest: Normal palpation of entire chest wall Respiratory: Normal respiratory effort Neurology: Patient oriented x3 Results - Labs, tests, and diagnostics: Previous bone density scan indicating osteoporosis in the back and left hip; upcoming second colonoscopy and bone density scan scheduled for June. Plan To address the patient's symptoms of fatigue and possible underlying causes, it is crucial to update her blood work, checking particularly for anemia or thyroid dysfunction. The management of osteoporosis is ongoing, previously using Timlos, and considering Prolia after further consultation considering the patient's dental history. Coordination with a natural osteoporosis expert supplements the approach. A second bone density scan and a colonoscopy are planned for June, ensuring comprehensive health monitoring. Continual care of venous insufficiency includes habitual procedures and recent vein closure as a part of her treatment regimen. Patient was informed and verbally consented to the use of an ambient scribe for clinic note documentation during this visit. Discussion Notes Discussed with the patient the potential causes of her fatigue, including anemia and thyroid issues, and the necessity of updated blood work. We explored her osteoporosis treatment history with Timlos and deliberated the potential use of Prolia, weighing benefits against risks given her dental history. The focus expanded to consulting a specialist in natural osteoporosis therapies, maintaining an informed choice in her care. Proactively scheduling a second bone density scan and another colonoscopy were confirmed as part of her preventive care measures. We reviewed the ongoing management of venous insufficiency through procedural interventions and emphasized the importance of her participation in future follow-up visits to comprehensively address her diverse health needs. Patient Instructions - Schedule and complete upcoming blood work as soon as possible. - Maintain current appointments for a second bone density scan and colonoscopy in June. - Continue discussing osteoporosis management options with the osteoporosis specialist. - Adhere to vein treatment follow-ups and report any new symptoms. - Engage in regular physical activity while taking precautions to prevent falls. - Keep family members informed about health decisions and coordinate pediatric transition for the younger son. Orders: Orders Basic Metabolic Panel 05/08/24 E78.00 - Pure hypercholesterolemia, unspecified, M81.0 - Age-related osteoporosis without current pathological fracture Thyroid Stimulating Hormone 05/08/24 E78.00 - Pure hypercholesterolemia, unspecified, M81.0 - Age-related osteoporosis without current pathological fracture UA and rflx microscopic 05/08/24 E78.00 - Pure hypercholesterolemia, un specified, M81.0 - Age-related osteoporosis without current pathological fracture Complete Blood Count no Diff 05/08/24 E78.00 - Pure hypercholesterolemia, unspecified, M81.0 - Age-related osteoporosis without current pathological fracture Lipid Panel 05/08/24 E78.00 - Pure hypercholesterolemia, unspecified, M81.0 - Age-related osteoporosis without current pathological fracture Liver Panel 05/08/24 E78.00 - Pure hypercholesterolemia, unspecified, M81.0 - Age-related osteoporosis without current pathological fracture
[2024-05-08 15:36] VITALS: BP 118/66; PULSE 66; RESP 16; TEMP 36.4; O2SAT 96; BMI 19.8
--- OUTSIDE RECORDS SUMMARY | 2024-05-08 18:24 | XMS_ITS ---
Author Organization [facility] Address [address] [place] [address] Care Team Providers Care Rn Imaging Name Role Phone ELMO DANNIE Primary Care Provider Brijesh Arriaza Unavailable [phone] Allergies Allergen (clinical drug ingredient) Drug/Non Drug Allergy documented on EMR Reaction Allergy Type Onset Date Status amoxicillin Amoxicillin Unknown Drug Allergy Act miladis seasonal (uncoded) Unknown Allergy A ctive REASON FOR VISIT Patient presents today for a COLON SCREENING Medications Medication SIG (Take, Route, Frequency, Duration) Notes Start Date End Date Status BD Pen Needle Mini U/F 31G X 5 MM for 90 Active Magnesium 300 MG 1 capsule with a meal Orally Once a day for 30 day(s) Active Vitamin D-Vitamin K Orally Active Atorvastatin Calcium 20 MG 1 tablet Orally Once a day Active Multi Vitamin/Minerals Orally Active Vitamin C 1000 MG 1 tablet Orally Once a day Active Tymlos 3120 MCG/1.56ML as directed Subcutaneous Daily For osteoporosis Active Turmeric 500 MG as directed Orally Active Biotin Maximum Strength 5000 MCG 1 capsule Orally Once a day Active Social History Alcohol Screen Question Answer Notes Did you have a drink containing alcohol in the p ast year? No Points 0 Interpretation Negative Section Notes: Nonsmoker > 10 yrs ago; no s ig alcohol Problems Problem Type SNOMED Code ICD Code Onset Dates Problem Status W/U Status Risk Notes Problem Colon cancer screening (960224251) Colon cancer screening (Z12.11) Active confirmed Problem Pre-procedure evaluation check (083504616) Encounter for other preprocedural examination (Z01.818) Active confirmed Vital Signs Temperature 97.5 degrees Fahrenheit 03/14/19 25 Blood pressure systolic 000 mm Hg 03/14/19 25 Blood pressure diastolic 00 mm Hg 025 Height 68 in 03/14/2024 Weight 135 lbs 03/14/2024 BMI 20.52 kg/m2 03/14/2024 Encounters Encounter Location Date Provider Diagnosis [facility] [address] [place] [address] 03/14/2024 Brijesh Levi Colon cancer screeni ng Z12.11 and Encounter for other preprocedural examination Z01.818 Assessments Encounter Date Diagnosis (ICD Code) Assessment Notes Treatment Notes Treatment Clinical Notes Section Notes 03/14/2024 Colon cancer screening (ICD-10 - Z12.11) Stop Turmeric for 1 week before the colonoscopy Overall, Joellen appears quite well. Given her age, excellent clinical appearance, and her last colonoscopy being 10 years ago, I did recommend a followup colonoscopy for further screening purposes. We did review the rationale for that in regard to colon cancer prevention. Full consent was obtained for this, including risks of bleeding and perforation. The procedure will be done monitored anesthesia care. Joellen was comfortable with this plan. Thank you again for allowing me to participate in Joellen's care. I shall continue to keep you advised of her progress. 03/14/2024 Encounter for other preprocedural examination (ICD-10 - Z01.818) Overall, Joellen appears quite well. Given her age, excellent clinical appearance, and her last colonoscopy being 10 years ago, I did recommend a followup colonoscopy for further screening purposes. We did review the rationale for that in regard to colon cancer prevention. Full consent was obtained for this, including risks of bleeding and perforation. The procedure will be done monitored anesthesia care. Joellen was comfortable with this plan. Thank you again for allowing me to participate in Joellen's care. I shall continue to keep you advised of her progress. Plan Of Treatment Treatment Notes Assessment Notes Colon cancer screening Stop Turmeric for 1 week before the colonoscopy Future Test Test Name Order Date COLONOSCOPY 03/14/2024 Next Appt Details Follow Up: prn, Reason: Provider Name:Brijesh Levi , 06/29/2024 09:30:00 AM, [address] [place] [address] , [place], [place], [phone], Progress Notes * VANESSA KING:1960 (63 yo F)Acc No.[id number]:03/14/2024 Progress Notes Patient:?JOELLEN KING Provider:?Brijesh Levi MD :1960???Age:63 Y???Sex:Female D ate:03/14/2024 Address:[address] [place] [address], [id number] Pcp:DANNIE BORREGO Subjective: * Chief Complaints: * ???Patient presents today fo r a COLON SCREENING * HPI: ???incontinence:? I saw Joellen in the office today for evaluation of colorectal cancer screening. ?I last saw Joellen in February of 2014, at which time she underwent a negative screening colonoscopy. She presently feels very well. She enjoys a good appetite, without any significant heartburn or dysphagia. Her bowel movements have been regular and without any signs of bleeding. She denies abdominal pain, signs of jaundice, nor unintentional weight loss. She denies any known family history colorectal cancer. * ROS:?General/Constitutional:?Change in appetite?denies.?Chills?denies.?Fatigue?denies.?Ophthalmologic:?Comments?all negative.?ENT:?Comments?all negative.?Respiratory:?hemoptysis?denies.?Cough?denies.?Cardiovascular:?Chest pain?denies.?Orthopnea?denies.?Gastrointestinal:?Comments?See HPI for details.?Genitourinary:?Hematuria?denies.?Dysuria?denies.?Musculoskeletal:?Painful joints?denies.?Weakness?denies.?Skin:?Itching?denies.?Rash?denies.?Neurologic:?Headache?denies.?Seizures?denies.?Psychiatric:?Comments?all negative.? * Medical History:? * Surgical History:?Bilateral mastectomy--at [facility] 2009Reconstructive surgery-Dr. Torres 2009-2011Vein ligation- several [phone] * Hospitalization/Major Diagno stic Procedure:?No Hospitalization History. * Family History:?Father: dece ased, diagnosed with HTN (hypertension), Diabetes, Heart disease.?Mother: .? No colorectal cancer. No family history of liver cancer. * Social History:?Tobacco Use:?Tobacco Use/Smoking?Are you a: former smoker , How long has it been since you last smoked?: > 10 years.?Drugs/Alcohol:?Alcohol Screen?Did you have a drink containing alcohol in the past year??No,?Points?0,?Interpretation?Negative.?Miscellaneous:?Marital status: - 4 children. Occupation: [employer]. ???Nonsmoker >10 yrs ago; no sig alcohol. * Medications:?TakingMagnesium 300 MG Capsule 1 capsule with a meal Orally Once a dayTurmeric 500 MG Capsule as directed Orally Biotin Maximum Strength 5000 MCG Capsule 1 capsule Orally Once a dayMulti Vitamin/Minerals Tablet Orally Vitamin C 1000 MG Tablet 1 tablet Orally Once a dayVitamin D-Vitamin K Tablet Orally Atorvastatin Calcium 20 MG Tablet 1 tablet Orally Once a dayTymlos 3120 MCG/1.56ML Solution Pen-injector as directed Subcutaneous Daily, Notes: For osteoporosisBD Pen Needle Mini U/F 31G X 5 MM Miscellaneous Taking Magnesium 300 MG Capsule 1 capsule with a meal Orally Once a dayTaking Turmeric 500 MG Capsule as directed Orally Taking Biotin Maximum Strength 5000 MCG Capsule 1 capsule Orally Once a dayTaking Multi Vitamin/Minerals Tablet Orally Taking Vitamin C 1000 MG Tablet 1 tablet Orally Once a dayTaking Vitamin D-Vitamin K Tablet Orally Taking Atorvastatin Calcium 20 MG Tablet 1 tablet Orally Once a dayTaking Tymlos 3120 MCG/1.56ML Solution Pen-injector as directed Subcutaneous Daily, Notes: For osteoporosisTaking BD Pen Needle Mini U/F 31G X 5 MM Miscellaneous DiscontinuedKrill Oil 500 MG Capsule Orally Escitalopram Oxalate 10 MG Tablet 1 tablet Orally Once a dayMoviPrep 100 GM Solution as directed Orally as directedMedication List reviewed and reconciled with the patientDiscontinued Krill Oil 500 MG Capsule Orally Discontinued Escitalopram Oxalate 10 MG Tablet 1 tablet Orally Once a dayDiscontinued MoviPrep 100 GM Solution as directed Orally as directedMedication List reviewed and reconciled with the patient * Allergies:?Amoxicillinseason alyes[Allergies Verified] Objective: * Vitals:?Wt: 135 lbs, Ht: 68 in, BMI:20.52 Index, BP: 000/00 mm Hg, Temp: 97.5. * Examination: ???General Examination: ?GENERAL APPEARANCE:?pleasant, well nourished, well developed, in no acute distress.?EYES:?sclera non-icteric.?ORAL CAVITY:?mucosa moist.?NECK/THYROID:?no cervical lymphadenopathy, neck supple.?SKIN:?nonjaundiced, no spider angiomata.?HEART:?S1, S2 normal.?LUNGS:?clear to auscultation bilaterally.?ABDOMEN:?normal bowel sounds, no guarding or rigidity, no guarding or rigidity, no masses palpable, soft, nontender, nondistended.?EXTREMITIES:?no edema.?NEUROLOGIC:?alert and oriented.? Assessment: * Assessment: 1.?Encounter for other prepr ocedural examination - Z01.818 (Primary)?2.?Colon cancer screening - Z12.11? Overall, Joellen appears quit e well. Given her age, excellent clinical appearance, and her last colonoscopy being 10 years ago, I did recommend a followup colonoscopy for further screening purposes. We did review the rationale for that in regard to colon cancer prevention. Full consent was obtained for this, including risks of bleeding and perforation. The procedure will be done monitored anesthesia care. Joellen was comfortable with this plan. Thank you again for allowing me to participate in Joellen's care. I shall continue to keep you advised of her progress. Plan: * Treatment: Notes: Stop Turmeric for 1 week before the colonoscopy?? * Procedure Codes:?3017F COLOR ECTAL CA SCREEN DOC [id number] TOBACCO [id number] BP SCR NOT PRFRM REC REASON NOS * Follow Up:?prn * * Sign off status: Completed true * Provider:?Brijesh Levi MD Date:? 025 Generated for Stephoni dillon/Fredi/eTransmitting on:?05/08/2024 06:23 PM EDT History and Physical Notes * HPI (History of Present Illness) Category Sub-Category Detail Notes Category Not es incontinence I saw Joellen in the office today for evaluation of colorectal cancer screening. I last saw Joellen in February of 2014, at which time she underwent a negative screening colonoscopy. She presently feels very well. She enjoys a good appetite, without any significant heartburn or dysphagia. Her bowel movements have been regular and without any signs of bleeding. She denies abdominal pain, signs of jaundice, nor unintentional weight loss. She denies any known family history colorectal cancer. Examination Category Sub-Category Detail Notes Category Not es General Examination GENERAL APPEARANCE: pleasant , well nourished, well developed, in no acute distress HEAD: EYES: sclera non-icteric EARS: NOSE: THROAT: NECK/THYROID: no cervical lymphade nopathy, neck supple HEART: S1, S2 normal CHEST: LUNGS: clear to auscultatio n bilaterally ABDOMEN: normal bowel sounds, no guarding or rigidity, no guarding or rigidity, no masses palpable, soft, nontender, nondistended NEUROLOGIC: alert and oriented SKIN: nonjaundiced, no spi jenelle angiomata EXTREMITIES: no edema PERIPHERAL PULSES: BACK: BREASTS: MUSCULOSKELETAL: MALE GENITOURINARY: LYMPH NODES: RECTAL EXAM: FEMALE GENITOURINARY: ORAL CAVITY: mucosa moist
--- OUTSIDE RECORDS SUMMARY | 2024-05-08 18:24 | XMS_ITS | Patient Health Record ---
Author Organization [facility] Address [address] [place] [address] Care Team Providers Care Correspondent Name Role Phone DANNIE BORREGO Primary Care Provider Brijesh Arriaza Unavailable [phone] Allergies Allergen (clinical drug ingredient) Drug/Non Drug Allergy documented on EMR Reaction Allergy Type Onset Date Status amoxicillin Amoxicillin Unknown Drug Allergy Act miladis seasonal (uncoded) Unknown Allergy A ctive Reason For Referral Referring Provider First Name DANNIE Referring Provider Last Name ELMO Referred Organization [facility] Referred Provider Brijesh Eaton Referred Address [address],[place], [place],[address], Referred Provider Specialty Gastroentero logy General Notes Elayne Calloway 025 02:59:16 PM EST > CALL DR PANTOJA'S OFFICE AT [phone] [facility] BLUE REFERRAL FOR VISIT WITH DR EATON ON 03-14-2024, Elayne Calloway 02/29/2024 09:42:47 AM EST >pt is still listed as Dr. Pantoja...left voice message asking pt to change pcp with bc/bs and notify Dr. Borrego so they can put the referral in the system, Elayne Calloway 03/14/2024 02:35:35 PM EST > requested from dr dee office Referral Priority Routine Medications Medication SIG (Take, Route, Frequency, Duration) Notes Start Date End Date Status Vitamin D-Vitamin K Orally Active Atorvastatin Calcium 20 MG 1 tablet Orally Once a day Active Multi Vitamin/Minerals Orally Active Vitamin C 1000 MG 1 tablet Orally Once a day Active Tymlos 3120 MCG/1.56ML as directed Subcutaneous Daily For osteoporosis Active BD Pen Needle Mini U/F 31G X 5 MM for 90 Active Turmeric 500 MG as directed Orally Active Biotin Maximum Strength 5000 MCG 1 capsule Orally Once a day Active Magnesium 300 MG 1 capsule with a meal Orally Once a day for 30 day(s) Active Immunizations Vaccine Route Administration Date Status Comme nts Influenza Unknown 12/13/2023 Administered Social History Alcohol Screen Question Answer Notes Did you have a drink containing alcohol in the p ast year? No Points 0 Interpretation Negative Section Notes: Nonsmoker > 10 yrs ago; no s ig alcohol Nonsmoker > 10 yrs ago; no s ig alcohol Problems Problem Type SNOMED Code ICD Code Onset Dates Problem Status W/U Status Risk Notes Problem Colon cancer screening (433811828) Colon cancer screening (Z12.11) Active confirmed Problem Pre-procedure evaluation check (786109611) Encounter for other preprocedural examination (Z01.818) Active confirmed Vital Signs Temperature 97.5 degrees Fahrenheit 03/14/2024 Blood pressure diastolic 00 mm Hg 03/14/2024 Height 68 in 03/14/2024 Blood pressure systolic 000 mm Hg 03/14/2024 Weight 135 lbs 03/14/2024 BMI 20.52 kg/m2 03/14/2024 Encounters Encounter Location Date Provider Diagnosis [facility] [address] [place] [phone] 03/14/2024 Brijesh Eaton Colon cancer screeni ng Z12.11 and Encounter for other preprocedural examination Z01.818 [facility] [address] [place] [phone] 02/28/2024 Brijesh Eaton [facility] [address] [place] [phone] 03/15/2024 Brijesh Eaton Assessments Encounter Date Diagnosis (ICD Code) Assessment [...] advised of her progress. Plan Of Treatment Future Test Test Name Order Date COLONOSCOPY 02/05/2014 COLONOSCOPY 03/14/2024 Next Appt Details Provider Name:Brijesh Galarza Amita , 06/29/2024 09:30:00 AM, [address] [place] [address] , [place], [place], [phone], Insurance Providers Payer Name Payer Address Payer Phone Subscriber Number Group Number Insured Name Patient Relationship to Insured Coverage Start Date Coverage End Date O [employer] [address] [place] [address] [id number] 2 JOELLEN KING Self - patient is the insured 4 Medical (General) History Medical History History ICD Code Breast cancer 2009--primarily on the lef t--surgery as below [place]-she describes that it was stress induced --2012--reports a normal cardiac cath Denies DM,CVA,Lung disease,renal disease Hyperlipidemia Depression Osteoporosis 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 Negative screening colonoscopy in 02/2014 Surgical History Surgery Date(Month/Year) Bilateral mastectomy--at [facility] 2009 Reconstructive surgery-Dr. Torres 2009-2 012 Vein ligation- several [phone]
--- OUTSIDE RECORDS SUMMARY | 2024-05-08 18:24 | XMS_ITS | Clinical Summary ---
Author Organization [facility] Address [address] [place] [address] Care Team Providers Care Safety Assistant Name Role Phone Brijesh Tabares DO Unavailable [phone] Brijesh Tabares DO Primary Care Provider [phone] Allergies Active Allergy Reactions Criticality Noted Date Comments Amoxicillin Hives High 09/06/2023 Medications atorvastatin (LIPITOR) 40 mg tablet Take 40 mg by mouth nightly. 07/12/2018 Active multivitamin (THERAGRAN) tablet Take 1 tablet by mouth in the morning. Active ascorbic acid, vitamin C, (VITAMIN C) 1,000 mg tablet Take 1,000 mg by mouth in the morning. Active turmeric 400 mg capsule Take 400 mg by mouth in the morning. Active biotin 1 mg capsule Take 1 mg by mouth in the morning. Active Active Problems Problem Noted Date Diagnosed Date TIA (transient ischemic attack) 09/05/2023 Assessment & Plan (09/06/2023 1:18 PM EDT): Ruled out. MRI showing no acute ischemic event. Seen by neurology, cleared for discharge. See rest of the plan above. Assessment & Plan (09/05/2023 10:25 PM EDT): See above for history of present illness -MRI of the brain ordered -NIH every 4 hours -Bedside swallow evaluation -Atorvastatin 80 mg nightly -Vitals every 4 hours Vertigo 09/05/2023 Assessment & Plan (09/06/2023 1:19 PM EDT): Patient has had periods of dizziness since a fall she sustained 7/8 where she hit her head with no known loss of consciousness. Since then she is felt extremely fatigued with intermittent nausea and dizziness. Symptoms of dizziness, headache, nausea and vomiting were amplified today after a prolonged dental appointment where she had some crown work. She required transport via EMS to the ED due to non-intractable vomiting and altered level of consciousness. Vitals and labs unremarkable, stroke alert activated and neurology consulted upon arrival to ED. CT scan of the head and CTA of the head and neck were unrevealing and did not show any large vessel occlusion. The torsional nystagmus seen on exam has since resolved. Suspect the above symptoms were as a result of peripheral causes rather than a cerebellar/posterior circulation stroke. Etiologies could be vestibular neuritis, BPPV, etc. -Meclizine for symptom control Assessment & Plan (09/05/2023 10:25 PM EDT): Patient has had periods of dizziness since a fall she sustained 7/8 where she hit her head with no known loss of consciousness. Since then she is felt extremely fatigued with intermittent nausea and dizziness. Symptoms of dizziness, headache, nausea and vomiting were amplified today after a prolonged dental appointment where she had some crown work. She required transport via EMS to the ED due to non-intractable vomiting and altered level of consciousness. Vitals and labs unremarkable, stroke alert activated and neurology consulted upon arrival to ED. CT scan of the head and CTA of the head and neck were unrevealing and did not show any large vessel occlusion. -Admitted under observation -Neurology following, appreciate recommendations -Bedside swallow evaluation -Telemetry -MRI of the brain contrast -NIH every 4 hours -Meclizine and low-dose Ativan as needed for symptom control -Normotensive blood pressure -Vitals every 4 hours -PT/OT consult -Trend CBC and BMP Mixed hyperlipidemia 09/05/2023 Assessment & Plan (09/06/2023 1:19 PM EDT): History of hyperlipidemia. Home meds include atorvastatin 40 mg daily, continue on discharge. Assessment & Plan (09/05/2023 10:25 PM EDT): History of hyperlipidemia. Home meds include atorvastatin 40 mg daily -Atorvastatin ordered to 80 mg daily Social History Tobacco Use Types Packs/Day Years Used Date Smoking Tobacco: Never Assessed Comments No Sex and Gender Information Value Date Recorded Sex Assigned at Not on file Legal Sex Female 6:35 PM EDT Gender Identity Not on file Sexual Orientation Not on file Last Filed Vital Signs Vital Sign Reading Time Taken Comments Blood Pressure 123/62 09/06/2023 12:00 PM EDT Pulse 66 09/06/2023 12:00 PM EDT Temperature 37.2 ??C (99 ??F) 09/06/2023 12:00 PM EDT Respiratory Rate 16 09/06/2023 12:00 PM EDT Oxygen Saturation 99% 09/06/2023 12:00 PM EDT Inhaled Oxygen Concentration - - Weight 59.1 kg (130 lb 4.7 oz) 09/05/2023 6:57 P M EDT Height 177.8 cm (5' 10 ) 09/05/2023 6:57 PM EDT Body Mass Index 18.69 09/05/2023 6:57 PM EDT Plan of Treatment Health Maintenance Due Date Last Done Comments Bone Density Screening 1962 Breast Cancer Screening 1962 CT Colonography 1962 Colonoscopy 1962 Colorectal Cancer Screening 1960 FIT-DNA (Cologuard) 1960 FIT 1962 FOBT 1962 Flex Sigmoidoscopy - 5y 1960 HIV Screening 1960 Hepatitis C Screening 1980 Pap Smear 05/05/1983 Cervical Cancer Screening 1992 HPV/Cotest 1992 Zoster Vaccines (1 of 2) 2012 COVID-19 Vaccine ( - season) 2023 03/18/2021, 06/06/2020, 05/15/2020 Influenza Vaccine (#1) 2023 , 11/29/2020, 12/13/2019, Additional history exists DTaP,Tdap,and Td Vaccines (2 - Td or Tdap) 10/02/2028 10/02/2018 Pneumococcal Vaccine: Pediatrics (0 to 5 Years) and At-Risk Patients (6 to 64 Years) Aged Out 07/08/2012 No longer eligible based on patient's age to complete this topic HPV Vaccines Aged Out No longer eligi ble based on patient's age to complete this topic Hepatitis A Vaccines Aged Out No long er eligible based on patient's age to complete this topic MMR Vaccines Aged Out No longer eligi ble based on patient's age to complete this topic Meningococcal Vaccine Aged Out No kelechi katina eligible based on patient's age to complete this topic Insurance [facility] Address: [address] [address] Advance Directives For more information, please contact: [phone] * Full Code (Latest Code Status on File) Date Activated Date Inactivated Comments 09/05/2023 8:46 PM 09/06/2023 3:33 PM * Full Code Date Activated Date Inactivated Comments 09/05/2023 8:38 PM 09/05/2023 8:46 PM Care Teams Safety Assistant Relationship Specialty Start Date End Date Brijesh Tabares DO [address] [place] [phone] PCP - Insurance Payer PCP 03/24/18 Brijesh Tabares DO [address] [place] [phone] PCP - General Internal Medicine 09/05/23
--- OUTSIDE RECORDS SUMMARY | 2024-05-08 18:24 | XMS_ITS ---
Author Name [facility] Organization Unknown Results Test Name/Text Value Interpretation Date Range Source POCT GLUCOSE 144mg/dL Normal [id number] 70 - 200 [facility] POCT GLUCOSE 65mg/dL Below low normal [id number] 70 - 20 0 [facility] CANNABINOID Negative Normal [id number] - [facility] OPIATES, URINE Negative Normal [id number] - [facility] COCAINE METABOLITES URINE Negative Normal [id number] - [facility] BENZODIAZEPINE, URINE Negative Normal [id number] - [facility] NATRIURETIC PEPTIDE B (BNP) 169pg/mL Above high normal [id number] 0 - 100 [facility] MAGNESIUM 1.8mg/dL Normal [id number] 1.8 - 3 [facility] POCT GLUCOSE 120mg/dL Normal [id number] 70 - 200 [facility] ACTIVATED PARTIAL THROMBOPLASTIN TIME IN PPP BY COAGULATION ASSAY 26.7seconds Normal [id number] 25.1 - 36.5 [facility] MAGNESIUM 1.9mg/dL Normal [id number] 1.8 - 3 [facility] ALT (SGPT) 19U/L Normal [id number] 8 - 39 [facility] PROTEIN TOTAL 6.6g/dL Normal [id number] 6.2 - 8.1 [facility] AST (SGOT) 26U/L Normal [id number] 17 - 35 [facility] BILIRUBIN, TOTAL 0.5mg/dL Normal [id number] 0.1 - 1.2 [facility] ALKALINE PHOSPHATASE 85U/L Normal [id number] 39 - 1 13 [facility] BILIRUBIN, DIRECT 0.2mg/dL Normal [id number] 0 - 0.5 [facility] ALBUMIN, AUTOMATED 4.1g/dL Normal [id number] 3.8 - 5. 3 [facility] TROPONIN I 0.01ng/mL Normal [id number] - [facility] INR 1.1ratio Normal [id number] 0.9 - 1.1 [facility] PROTHROMBIN TIME (PT) 12.1seconds Normal [id number] 10. 4 - 13 [facility] CREATININE 0.7mg/dL Normal [id number] 0.6 - 1.2 [facility] POTASSIUM 3.6mmol/L Normal [id number] 3.6 - 5.1 [facility] BICARBONATE 20mmol/L Below low normal [id number] 23 - 32 [facility] GLOMERULAR FILTRATION RATE ML/MIN/1.73 SQ M.PREDICTED 98mL/min/1.73m* 2 Normal [id number] 60 - [facility] SODIUM 140mmol/L Normal [id number] 137 - 144 [facility] CHLORIDE 108mmol/L Normal [id number] 100 - 111 [facility] CALCIUM, TOTAL 9.1mg/dL Normal [id number] 8.4 - 10.2 [facility] UREA NITROGEN 15mg/dL Normal [id number] 8 - 24 [facility] ANION GAP 12mmol/L Above high normal [id number] 3 - 11 [facility] GLUCOSE 152mg/dL Normal [id number] 70 - 200 [facility] THYROID STIM HORMONE 1.27uIU/mL Normal [id number] 0.35 - 4.94 [facility] PHOSPHORUS 1.7mg/dL Below low normal [id number] 2.4 - 4.8 [facility] RBC DISTRIBUTION WIDTH 13.5% Normal [id number] 11.6 - 14.8 [facility] PLATELET COUNT 77795*3/uL Below low normal [id number] 150 - 440 [facility] AUTO NRBC % 0% Normal [id number] 0 - 0 [facility] MCHC 32.7g/dL Normal [id number] 32 - 36 [facility] HEMATOCRIT 42.5% Normal [id number] 35 - 47 [facility] WHITE CELL COUNT 4.710*3/uL Normal [id number] 3.6 - 11 [facility] MCH 30.1pg Normal [id number] 26 - 34 [facility] RED CELL COUNT 4.6210*6/???L Normal [id number] 3.8 - 5. 2 [facility] MCV 92fL Normal [id number] 80 - 100 [facility] HEMOGLOBIN 13.9g/dL Normal [id number] 12 - 16 [facility] POCT GLUCOSE 164mg/dL Normal [id number] 70 - 200 [facility] Encounters Encounter Type Encounter Reason Primary Diagnosis Location Date Emergency Dizziness and giddiness Dizziness and giddiness Formerly [facility] 09/05/2023 Care Team Organization Name Specialty Phone Email Start Date End Da te Formerly [facility] ROCAEL PANTOJA Primary Care 024 [facility] 09/06/2023
--- OUTSIDE RECORDS SUMMARY | 2024-05-08 18:24 | XMS_ITS ---
Author Organization [facility] luis [place] Address [address] [place] [address] Care Team Providers Care [employer] Librarian Name Role Phone Raysa HAMMER, Brijesh Primary Care Provider Unavail able Black, Katrin Unavailable [phone] Allergies Allergen (clinical drug ingredient) Drug/Non Drug Allergy documented on EMR Reaction Allergy Type Onset Date Status Seasonale Unknown Drug Allergy Active REASON FOR VISIT PCP - 09/2022, Painful Nail(s) Medications Medication SIG (Take, Route, Frequency, Duration) Notes Start Date End Date Status Atorvastatin Calcium Active Vitamin D Active Escitalopram Oxalate 10 MG 1 tablet Orally Once a day Not-Taking Biotin Active Sertraline HCl Not-T aking Multivitamin Active Collagen Active Vitamin C Active Turmeric Active Social History Tobacco Use: Social History Observation Description Date Details (start date - stop date) Former Smoker NA - NA Tobacco Use/Smoking Question Answer Notes Are you [...] Are you an other tobacco user? No Vital Signs Height 5ft 10in in 12/27/2022 Weight 130 lbs 12/27/2022 BMI 18.65 kg/m2 12/27/2022 Encounters Encounter Location Date Provider [facility] [address] [place] [address] 12/27/2022 Katrin Black Tinea unguium B35.1 Assessments Encounter Date Diagnosis (ICD Code) Assessment Notes Treatment Notes Treatment Clinical Notes Section Notes 12/27/2022 Tinea unguium (ICD-10 - B35.1) Plan Of Treatment Next Appt Details Follow Up: prn, Reason: Progress Notes * Peyton KINGDOB:1960 (62 yo F)Acc No.[id number]:12/27/2022 Progress Note Patient:?Peyton King Provider:?Katrin Dubon DPM :1960???Age:62 Y???Sex:Female D ate:12/27/2022 Address:[address] [place] [address] [facility] [place] [facility] Pcp:Brijesh Tabares MD Subjective: * Chief Complaints: * ???PCP - ainful Nail (s) * HPI: ???Painful Nails:?Pt States Last PCP Visit:?Date:?11/03/2021 ?Nature:?discolored. tender.?Location:?2nd toe. Both feet.?Duration:?several years.?Onset/Cause:?unknown.?Course:?improved.?Treatments:?Topical mediation per [facility] Comprehensive DNA sequencing , Formula 7 , relates adherence to recom tx.?Severity/Quality:?Mild. .? * ROS:?General/Constitutional:?Nausea?denies.?Vomiting?denies.?Hunger Thirst?denies.?Loss appetite?denies.?Chills?denies.?Fatigue?denies.?Fever?denies.?Night Sweats?denies.?Unexplained weight loss?denies.?Unexplained weight gain?denies.?HEENTM:?Dentures?denies.?Dizziness?denies.?Glasses/contacts?denies.?Retinopathy?de nies.?Blurred/double vision?denies.?TMJ?denies.?Discharge/drainage?denies.?Implants?denies.?Sore throat?denies.?Dental implants?denies.?Hard of hearing ?denies.?Difficulty chewing/swallowing/speaking?denies.?Nose bleeds?denies.?Sore mouth?denies.?Respiratory:?On Oxygen?denies.?Pneumonia/pleurisy?denies.?Bronchitis?denies.?Emphysema?denies.?C oughing?denies.?Cough blood?denies.?Shortness of breath?denies.?Wheezing?denies.?Cardiovascular:?Pacemaker?denies.?MVP?denies.?WPW?denies.?CHF?denies.?Heart attack?denies.?Septal defect?denies.?Rapid beat?denies.?Chest pain ?denies.?Atrial Fib.?denies.?Murmur/Palpitations?denies.?Gastrointestinal:?Hemorrhoids?denies.?Stomach/Abdominal pain?denies.?Dark blood stool?denies.?Irritable bowel ?denies.?Constipation?denies.?Diarrhea?denies.?Hematology:?Swelling?denies.?Clots?denies.?Varicose Veins?denies.?Bruising?denies.?Bleeding problem?denies.?Genitourinary:?Blood urine?denies.?Frequent/Painfu/urination/bladder control?denies.?Kidney stones?denies.?Infection (UTI)?denies.?Nephropathy?denies.?sex trans dis (STD)?denies.?Prostate?denies.?Musculoskeletal:?Hammertoes?admits.?Bunions?denies.?Back Pain?denies.?Muscle Cramps/ Resting?denies.?Muscle cramps / walking?denies.?Generalized aches and pains?denies.?Weakness?denies.?Integ.:?[place]?denies.?Scars?denies.?Corns/calluses?denies.?Ingrown nails?denies.?Painful nails?denies.?Open Sores?denies.?Rashes?denies.?Neurologic:?Difficulty sleeping?denies.?Brain disorder?denies.?Numbness?denies.?Balance trouble?denies.?Confusion?denies.?Fainting/blackouts?denies.?Tingling?denies.?Tr emors?denies.? * Medical History:? * Surgical History:?bilateral mastectomy vein ligation * Hospitalization/Major Diagno stic Procedure:?Denies Past Hospitalization * Family History:?Mother: dece ased, arthritis, poor circulation, diagnosed with Other malignant neoplasm of unspecified site.?Father: , diagnosed with Diabetic - NIDDM, Unspecified essential hypertension, Unspecified heart disease.? * Social History:?Tobacco Use:?Tobacco Use/Smoking?Are you a:?former smoker ?How long has it been since you last smoked??< 1 month ?Additional Findings: Tobacco Non-User?Current non-smoker ?Tobacco use other than smoking?Are you an other tobacco user??No ???Drugs/Alcohol:?Drugs?Have you used drugs other than those for medical reasons in the past 12 months??No ?Alcohol Screen?Did you have a drink containing alcohol in the past year??Yes ?How often did you have a drink containing alcohol in the past year??Monthly or less (1 point) ?Points?1 ?Interpretation?Negative ???Miscellaneous:?no Caffeine. ?Children: yes, 4. ?Exercise: yes, walking. ?Occupation: [employer]. * Medications:?TakingTurmeric Collagen Multivitamin Vitamin C Biotin Vitamin D Atorvastatin Calcium Taking Turmeric Taking Collagen Taking Multivitamin Taking Vitamin C Taking Biotin Taking Vitamin D Taking Atorvastatin Calcium Not-Taking/PRNEscitalopram Oxalate 10 MG Tablet 1 tablet Orally Once a daySertraline HCl Medication List reviewed and reconciled with the patientNot-Taking/PRN Escitalopram Oxalate 10 MG Tablet 1 tablet Orally Once a dayNot-Taking/PRN Sertraline HCl Medication List reviewed and reconciled with the patient * Allergies:?Seasonale: Allerg yyes[Allergies Verified] Objective: * Vitals:?Ht: 5ft 10in, Wt:130 , BMI:18.65, Shoe size: 9, Ht-cm: 177.8 cm, Wt-k.97 kg. * Examination: ???General Examination: ?GENERAL APPEARANCE:?Reveals a pleasant, alert, well nourished, well developed, well hydrated individual, who demonstrates proper attention to hygene/body habitus, and is in no acute distress.?ORIENTED:?person, place, and time.?Nails: ?NAILS are:?Elongated, overgrown, dystrophic, T1, T6 , no evidence of remaining fungus , nonediscolored and none friable with no crumbly malodorous subungual debris,.?Vascular: ?DP PULSES:? 2/4, B/L.?PT PULSES:?2/4, B/L.?VARICOSITIES:? present, moderate, nonpainful, B/L.?Neurological: ?SENSORY:?Neurological exam reveals intact sensorium, pain sensation normal, vibration sensation intact, pinprick sensation is normal in the lower extremities, Pt denies, anesthesia, burning, paresthesia, tingling, B/L.?Dermatologic: ?SKIN FINDINGS:?Skin exam reveals normal texture, elasticity, and tugor. There are no masses. The interspaces are clear.? Assessment: * Assessment: 1.?Tinea unguium - B35.1, Ch ronic problem, Stable (1=3,2=4)? Plan: * Treatment: * Procedure Codes:? * Preventive Medicine:? ??Counseling:?Discussion:?-13: Office or other outpatient visit for the evaluation and management of an established patient, which required a medically appropriate history and/or examination and LOW level of DECISION MAKING for: 1 STABLE ACUTE UNCOMPLICATED PROBLEM, 2 OR MORE MINOR PROBLEMS, OR 1 STABLE CHRONIC PROBLEM, THAT POSE(S) A LOW RISK FOR MORBIDITY/MORTALITY. The visit on the day of the encounter encompassed interpreting the data and educating the patient as to the nature of their condition, treatment options available according to their individual PMH, meds, allergies, and overall health/living conditions, as well as any potential risks or complications that may occur from a failure to adhere to, and participate in, the recommended course of therapy. The discussion included a complete verbal, and/or written explanation of the examination results, any x-rays taken, the proposed diagnosis, and outline of the treatment plan. A schedule for future care needs was also explained. The patient verbalized an understanding of the instructions at this time and agreed to be an active participant in their treatment. If the patient should think of any questions or concerns after the visit, I have encouraged the patient to call the office,, Patients podiatric issue has improved, they should call the office with any future issues or concerns. Pt will monitor for reoccurance and will apply toplical medicationif she feels its warranted.? * Follow Up:?prn * Images: * Sign off status: Completed true * Provider:?Katrin Dubon DPM Date:?2022 Generated for Augusta carranza/Fredi/Natalia on:?05/08/2024 06:24 PM EDT History and Physical Notes * HPI (History of Present Illness) Category Sub-Category Detail Notes Category Not es Painful Nails Onset/Cause: unknown Course: improved Duration: several years Location: 2nd toe. Both feet Nature: discolored. tender Treatments: Topical mediation pe r [employer] Comprehensive DNA sequencing , Formula 7 , relates adherence to recom tx Severity/Quality: Mild. Pt States Last PCP Visit: Date:: 11/03/2021 Examination Category Sub-Category Detail Notes Category Not es Neurological SENSORY: Neurological exa m reveals intact [...] person, place, and t toshia Vascular DP PULSES (B): 2/4, B/L PT PULSES (B): 2/4, B/L VARICOSITIES: present, moderate, n onpainful, B/L Nails NAILS are: Elongated, overg rown, dystrophic, T1, T6 , no evidence of remaining fungus , nonediscolored and none friable with no crumbly malodorous subungual debris,
--- OUTSIDE RECORDS SUMMARY | 2024-05-08 18:24 | XMS_ITS ---
Author Organization [facility] Address [address] [place] [address] Care Team Providers Care Technical Marketing Consultant Name Role Phone DANNIE BORREGO Primary Care Provider Brijesh Arriaza [phone] REASON FOR VISIT r/s procedure Encounters Encounter Location Date Provider Diagnosis [facility] [address] [place] [phone] 03/15/2024 Brijesh Levi Plan Of Treatment Next Appt Details Provider Name:Brijesh Levi , 06/29/2024 09:30:00 AM, [address] [place] [address] , [place], [place], [phone], Progress Notes * VANESSA KING:1960 (63 yo F)Acc No.[id number]:03/15/2024 Patient:?JOELLEN KING :1960???Age:63 Y???Sex:Female Address:[place], [address] * true * Date:? Generated for Printi ng/Fafatoug/eTransmitting on:?05/08/2024 06:24 PM EDT
--- OUTSIDE RECORDS SUMMARY | 2024-05-08 18:25 | XMS_ITS ---
Author Organization [facility] Address [address] [place] [address] Care Team Providers Care Inside Sales Name Role Phone DANNIE BORREGO Primary Care Provider Brijesh Arriaza [phone] REASON FOR VISIT NEED REFERRAL Encounters Encounter Location Date Provider Diagnosis [facility] [address] [place] [phone] 02/28/2024 Brijesh Levi Plan Of Treatment Next Appt Details Provider Name:Brijesh Levi , 06/29/2024 09:30:00 AM, [address] [place] [address] , [place], [place], [phone], Progress Notes * JOELLEN KINGDOB:1960 (63 yo F)Acc No.[id number]:02/28/2024 Patient:?JOELLEN KING :1960???Age:63 Y???Sex:Female Address:[place], [address] * true * Date:? Generated for Printi ng/Fafatoug/eTransmitting on:?05/08/2024 06:24 PM EDT
--- OUTSIDE RECORDS SUMMARY | 2024-05-08 18:25 | XMS_ITS ---
Author Organization [facility] Address [address] [place] [address] Care Team Providers Care Spanish Speaking Nanny Name Role Phone Raysa HAMMER, Brijesh Primary Care Provider Unavail able Black, Katrin Unavailable [phone] REASON FOR VISIT 1 LG/Wide Gel Tube Encounters Encounter Location Date Provider Diagnosis [facility] [address] [place] [address] 02/22/2023 Katrin Black Plan Of Treatment No Information Progress Notes * Peyton KINGDOB:1960 (62 yo F)Acc No.[id number]:02/22/2023 Patient:?Peyton King :1960???Age:62 Y???Sex:Female Address:[address] [place] [address] [place], [address] * true * Date:? Generated for Printi ng/Fafatoug/eTransmitting on:?05/08/2024 06:24 PM EDT
--- OUTSIDE RECORDS SUMMARY | 2024-05-08 18:25 | XMS_ITS | Patient Health Record ---
Author Organization [facility] Address [address] [facility] [address] [facility] [place] [address] Care Team Providers Care Complex Director Name Role Phone Brijesh Tabares MD Primary Care Provider Unavail able Katrin Dubon Unavailable [phone] Allergies Allergen (clinical drug ingredient) Drug/Non Drug Allergy documented on EMR Reaction Allergy Type Onset Date Status Seasonale Unknown Drug Allergy Active Reason For Referral No Information Medications Medication SIG (Take, Route, Frequency, Duration) Notes Start Date End Date Status Atorvastatin Calcium Active Vitamin D Active Escitalopram Oxalate 10 MG 1 tablet Orally Once a day Not-Taking Multivitamin Active Collagen Active Biotin Active Vitamin C Active Sertraline HCl Not-T aking Turmeric Active Social History Tobacco Use: Social [...] Are you an other tobacco user? No Problems Problem Type SNOMED Code ICD Code Onset Dates Problem Status W/U Status Risk Notes Problem Acquired hallux valgus (24488233) Hallux valgus (acquired), right foot (M20.11) Active confirmed Problem Acquired hammer toe of right foot (9197135378151 105) Other hammer toe(s) (acquired), right foot (M20.41) Active confirmed Problem Acquired hammer toe of left foot (3454821131064 103) Other hammer toe(s) (acquired), left foot (M20.42) Active confirmed Plan Of Treatment Pending Test Test Name Order Date [id number] NAIL, -03/28/2017 [id number] NAIL, 02-2502/27/2018 [id number] NAIL, 02-2512/17/2019 Nail Panel 03/28/2017 Insurance Providers Payer Name Payer Address Payer Phone Subscriber Number Group Number Insured Name Patient Relationship to Insured Coverage Start Date Coverage End Date [facility] [address] [place] [address] [id number] Peyton Muñoz Self - patient is the insured Medical (General) History Medical History History ICD Code Anxiety CAD (Cholesterol) breast cancer Depression Headaches Migraines Osteoporosis Surgical History Surgery Date(Month/Year) bilateral mastectomy vein ligation
== END 2024-05-08 16:20 | disposition home or self-care (01) ==
LOC: HO.HMCSH 15:33
PROVIDERS: PCP Internal Medicine; Visit Provider Internal Medicine
DX: E78.00 Pure hypercholesterolemia, unspecified (principal); M81.0 Age-related osteoporosis without current pathological fracture

== ENCOUNTER → 2024-05-08 15:33 | Outpatient (BNVA) | payer BC, SELFPAY | PROVIDERS: PCP Internal Medicine; Visit Provider Internal Medicine ==

== ENCOUNTER 2024-05-19 06:54 | Outpatient (REF) | payer BC, SELFPAY ==
[2024-05-19 11:49] LABS: Hematocrit 40.4 % (37.0-47.0); Hemoglobin 13.6 g/dl (12.0-16.0); Mean Corpuscular HGB Conc 33.7 g/dl (31.0-35.0); Mean Corpuscular Hemoglobin 30.6 pg (27.0-33.0); Mean Corpuscular Volume 90.8 fL (80.0-98.0); Mean Platelet Volume 11.1 fL (9.4-12.3); Platelet Count 173 X10*3/uL (160-400); Red Blood Count 4.45 X10*6/uL (4.20-5.50); Red Cell Distribution Width 13.8 % (11.0-16.0); White Blood Count 3.1 X10*3/uL (4.8-10.8)
[2024-05-19 11:51] LABS: Appearance Urine Clear; Color Urine Yellow; Glucose Urine UA Negative (Negative); Leukocyte Esterase Urine Small (1+) (Negative); Nitrite Urine Negative (Negative); Specific Gravity - Urine <= 1.005 (1.005-1.025); UMIC TRIGGER UA YES; Urine Blood Negative (Negative); Urine Ketones Negative (Negative); Urine Protein Negative (Neg-Trace)
[2024-05-19 12:10] LABS: Alanine Aminotransferase 18 U/L (0-31); Albumin Level 3.8 g/dL (3.5-5.0); Alkaline Phosphatase 74 U/L (39-117); Anion Gap 9 (12-20); Aspartate Amino Transferase 26 U/L (5-31); Bilirubin Direct 0.2 mg/dL (0.0-0.5); Bilirubin Total 0.5 mg/dL (0.0-1.0); Blood Urea Nitrogen 27 mg/dL (9-16); Calcium 8.9 mg/dL (8.4-10.2); Carbon Dioxide 27 mmol/L (22-29); Chloride 106 mmol/L (96-108); Cholesterol 243 mg/dL (<200); Estimated Glomerular Filt Rate > 60; Glucose Random 86 mg/dL (60-115); HDL Cholesterol 83 mg/dL (>40); LDL Cholesterol Calculated 154 mg/dL (<100); Potassium 3.8 mmol/L (3.3-5.1); Sodium 138 mmol/L (135-145); Total Protein 6.4 g/dL (6.5-8.0); Triglycerides 34 mg/dL (<150)
[2024-05-19 12:23] LABS: Bacteria Urine None Seen (None Seen); Hyaline Casts Urine 0-2 /LPF (0-2); RBC Urine 0-2 /HPF (0-2); Squamous Epithelial Cell Urine 0-2 /HPF (0-2); WBC Urine 0-5 /HPF (0-5)
== END 2024-05-19 06:55 | disposition home or self-care (01) ==
LOC: HO.HMGCLDS 06:54
PROVIDERS: PCP Internal Medicine; Visit Provider Internal Medicine
DX: E78.00 Pure hypercholesterolemia, unspecified (principal); M81.0 Age-related osteoporosis without current pathological fracture
CPT/HCPCS: 36415; 80048; 80061; 80076; 81001; 81003; 84443; 85027

== ENCOUNTER 2024-09-26 09:39 | Day surgery (SDC) | payer BC, SELFPAY ==
--- OUTSIDE RECORDS SUMMARY | 2024-05-31 08:01 | XMS_ITS | Clinical Summary ---
Author Organization [facility] Address [address] [place] [address] Care Team Providers Care Hydraulic Design Engineer Name Role Phone Brijesh Tabares DO Unavailable [phone] Brijesh Tabares DO Primary Care Provider [phone] Allergies Active Allergy Reactions Criticality Noted Date [...] of the plan above. Assessment & Plan (05/15/2024 1:24 PM EDT): See above for history of [...] -Meclizine for symptom control Assessment & Plan (05/15/2024 1:24 PM EDT): Patient has had periods of [...] daily, continue on discharge. Assessment & Plan (05/15/2024 1:24 PM EDT): History of hyperlipidemia. Home meds [...] 1992 Zoster Vaccines (1 of 2) 2012 Pneumococcal Vaccine, 50+ Years (2 of 2 - PCV) 07/08/2013 07/08/2012 COVID-19 Vaccine ( - season) 2023 03/18/2021, 06/06/2020, 05/15/2020 Influenza Vaccine (Season Ended) 2024 11/28/2021, 11/29/2020, 12/13/2019, Additional history exists DTaP,Tdap,and Td Vaccines (2 - Td or Tdap) 10/02/2028 10/02/2018 HPV Vaccines Aged Out No longer eligi [...] patient's age to complete this topic Insurance [facility] Advance Directives For more information, please contact: [phone] * Full Code (Latest Code Status on File) Date Activated Date Inactivated Comments 09/05/2023 8:46 PM 09/06/2023 3:33 PM * Full Code Date Activated Date Inactivated Comments 09/05/2023 8:38 PM 09/05/2023 8:46 PM Care Teams Hydraulic Design Engineer Relationship Specialty Start Date End Date Brijesh Tabares DO [address] [place] [phone] PCP - Insurance Payer PCP 03/24/18 Brijesh Tabares DO [address] [place] [phone] PCP - General Internal Medicine 09/05/23
--- NOTE | 2024-06-27 13:06 | HO.ANESPROP2 ---
HPI - Anesthesia Eval Consult details Narrative: 64yo F for Colonoscopy PMFSH Active Problems Active Problems: All Active Problems High cholesterol (Acute) Osteoporosis (Acute) Past Medical History Medical History (Updated 05/08/24 @ 16:19 by Didier Dykes MD) Osteoporosis High cholesterol Family History Family History (Updated 05/08/24 @ 15:44 by ROBY Arroyo) Father Pre-diabetes Heart disease Alcohol abuse Leukemia Mother Breast cancer Lung cancer Social History Social History (Updated 05/08/24 @ 15:44 by ROBY Arroyo) Housing: House Alcohol intake: current Alcohol intake frequency: holidays/special occasions only Patient Tobacco Use Status: Former Tobacco user service: No Current occupational status: employed Cognitive needs: No Hearing needs: No Vision needs: Yes (rx contacts/glasses) Meds Allergies Allergy/AdvReac Type Severity Reaction Status Date / Time amoxicillin Allergy Itching Verified 05/08/24 15:34 Home Medications ?Medication ?Instructions ?Recorded ?Confirmed ?Last Taken ?Type montelukast 10 mg tablet 10 mg PO DAILY 05/08/24 Unknown History (Jabariulair) Assessment and Plan Assessment Anesthesia Assessment: Chart Reviewed
[2024-06-27 14:20] VITALS: BMI 20.5
--- NOTE | 2024-09-25 10:39 | HO.ANESPROP2 ---
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 Active Problems Active Problems: All Active Problems High cholesterol (Acute) Osteoporosis (Acute) Past Medical History Medical History Osteopenia Depression Hx of myocardial infarction (~2012) Hx of breast cancer Osteoporosis High cholesterol Family History Family History Father Pre-diabetes Heart disease Alcohol abuse Leukemia Mother Breast cancer Lung cancer Surgical History Surgical History Hx of colonoscopy Hx of cardiac catheterization History of ligation of vein History of reconstruction of both breasts Hx of bilateral mastectomy (~2009) Social History Social History Housing: House Alcohol intake: current Alcohol intake frequency: holidays/special occasions only Patient Tobacco Use Status: Former Tobacco user Use of substances other than those prescribed or required for medical reasons: No Are you DNR?: No Advance Directives: No Advance Directives Information Provided: Yes service: No Current occupational status: employed Cognitive needs: No Hearing needs: No Vision needs: Yes (rx contacts/glasses) Meds Allergies Allergy/AdvReac Type Severity Reaction Status Date / Time amoxicillin Allergy Itching Verified 09/26/24 10:25 Home Medications ?Medication ?Instructions ?Recorded ?Confirmed ?Last Taken ?Type montelukast 10 mg tablet 10 mg PO DAILY PRN Allergy Symptoms 05/08/24 09/26/24 Unknown History (Singulair) ascorbic acid (vitamin C) 1,000 mg 1 g PO DAILY 06/27/24 09/26/24 Unknown History tablet (Vitamin C) biotin 5,000 mcg sublingual tablet 5,000 mcg sublingual DAILY 06/27/24 09/26/24 Unknown History escitalopram oxalate 10 mg tablet 10 mg PO DAILY 06/27/24 09/26/24 Unknown History magnesium 200 mg tablet 300 mg PO DAILY 06/27/24 09/26/24 Unknown History multivitamin with minerals 1 tab PO DAILY 06/27/24 09/26/24 Unknown History turmeric root extract 500 mg 500 mg PO DAILY 06/27/24 09/26/24 09/24/24 History capsule Exam Height,Weight and Vital Signs: Height 5 ft 8 in Weight 61.235 kg Assessment and Plan Assessment Anesthesia Assessment: Chart Reviewed Documented by User: Jessica Delgado MD 09/26/24 11:45 PMFSH Past Medical History Medical History Osteopenia Depression Hx of myocardial infarction (~2012) Hx of breast cancer Osteoporosis High cholesterol Family History Family History Father Pre-diabetes Heart disease Alcohol abuse Leukemia Mother Breast cancer Lung cancer Family history of problems with anesthesia: No Surgical History Surgical History Hx of colonoscopy Hx of cardiac catheterization History of ligation of vein History of reconstruction of both breasts Hx of bilateral mastectomy (~2009) History of Problems with Anesthesia: No Social History Social History Housing: House Alcohol intake: current Alcohol intake frequency: holidays/special occasions only Patient Tobacco Use Status: Former Tobacco user Use of substances other than those prescribed or required for medical reasons: No Are you DNR?: No Advance Directives: No Advance Directives Information Provided: Yes service: No Current occupational status: employed Cognitive needs: No Hearing needs: No Vision needs: Yes (rx contacts/glasses) Meds Allergies Allergy/AdvReac Type Severity Reaction Status Date / Time amoxicillin Allergy Itching Verified 09/26/24 10:25 Home Medications ?Medication ?Instructions ?Recorded ?Confirmed ?Last Taken ?Type montelukast 10 mg tablet 10 mg PO DAILY PRN Allergy Symptoms 05/08/24 09/26/24 Unknown History (Singulair) ascorbic acid (vitamin C) 1,000 mg 1 g PO DAILY 06/27/24 09/26/24 Unknown History tablet (Vitamin C) biotin 5,000 mcg sublingual tablet 5,000 mcg sublingual DAILY 06/27/24 09/26/24 Unknown History escitalopram oxalate 10 mg tablet 10 mg PO DAILY 06/27/24 09/26/24 Unknown History magnesium 200 mg tablet 300 mg PO DAILY 06/27/24 09/26/24 Unknown History multivitamin with minerals 1 tab PO DAILY 06/27/24 09/26/24 Unknown History turmeric root extract 500 mg 500 mg PO DAILY 06/27/24 09/26/24 09/24/24 History capsule Exam Airway TM Dist: >3cm Neck ROM: Full Heart: rrr Assessment and Plan Assessment Anesthesia Assessment: Anesthesia Plan Discussed Final Anesthetic Review Family History of Problems with Anesthesia: No History of Problems with Anesthesia: No NPO: Yes ASA Class: II Final Preanesthetic Review: No Changes in Pt Med Stat, Meds/Allgs Chart Reviewed, Consent Obtained/Reviewed and Anes Risks/Benef Reviewed Patient Risk: Low Procedure Risk: Low Anesthetic Plan Anesthetic Plan: MAC: Disposition: Standard PACU
[2024-09-26 10:17] VITALS: BMI 19.4
[2024-09-26 10:34] VITALS: BP 104/53; PULSE 56; RESP 15; TEMP 36.7; O2SAT 97
[2024-09-26] MEDS: Lactated Ringers 1,000 ML 100 ML IVCONT (10:42)
[2024-09-26 13:24] VITALS: BP 113/75; PULSE 75; RESP 16; TEMP 36.2; O2SAT 100
--- NOTE | 2024-09-26 13:24 | P.BOP_ITS ---
Brief Operative Note Date of Service: 09/26/24 Pre-op diagnosis: Screening Post-op diagnosis: other (Colon polyp) Procedure: Colonoscopy to the cecum and TI with bx/removal of polyp Surgeon: Brijesh Levi MD Anesthesia: MAC Was an Flying Shear Operator used for this Procedure?: No Estimated blood loss (mL): 2.0 Pathology: other (A. Ascending colon polyp[) Condition: stable Disposition: PACU
[2024-09-26 13:39] VITALS: BP 109/55; PULSE 63; RESP 16; TEMP 36.1; O2SAT 100
--- NOTE | 2024-09-27 13:16 | OP_ITS ---
DATE OF SERVICE: 09/26/2024 SURGEON: Brijesh Levi MD INDICATIONS: The patient presents for evaluation of colorectal cancer screening. Full consent has been obtained from her for this, including risks of bleeding and perforation. PREOPERATIVE DIAGNOSIS: Colorectal cancer screening. POSTOPERATIVE DIAGNOSIS: Colorectal cancer screening, small colon polyp, diverticulosis, and internal hemorrhoids. PROCEDURE PERFORMED: Colonoscopy to the cecum and terminal ileum with biopsy removal of polyp. ESTIMATED BLOOD LOSS: COMPLICATIONS: ANESTHESIA: Monitored anesthesia care. ASSISTANTS: SPECIMENS: DESCRIPTION OF PROCEDURE: The patient was placed in the left lateral decubitus position. The digital rectal exam revealed no abnormalities. The Olympus video pediatric colonoscope was entered into the rectum and advanced easily to the cecum. Once in the cecum, I did identify normal-appearing cecal pouch with appendiceal orifice and a normal-appearing ileocecal valve. The terminal ileum was cannulated and appeared normal. Scope was withdrawn back in the colon. The entire cecum and ileocecal valve appeared normal. The scope was slowly withdrawn assessing all mucosal surfaces carefully. Preparation was excellent. In the proximal ascending colon, there was a flat 2 or 3 mm polyp, which was biopsied and completely removed with cold biopsy forceps. I did not visualize any other polyps, colitis, nor angiodysplasia. There was a mild amount of sigmoid diverticulosis. In the rectum, scope was retroflexed visualizing internal hemorrhoids, but no other pathology. The rectal mucosa appeared normal. The scope was straightened and withdrawn from the patient. She tolerated the procedure well and was returned to recovery area in stable condition. IMPRESSION: 1. Small colon polyp. 2. Diverticulosis. 3. Internal hemorrhoids. PLAN: The results of the Pathology will be checked. If this happens to be a tubular adenoma, I would recommend a followup coloscopy in 5 years. If it is only hyperplastic, I would recommend a followup coloscopy in 10 years. She will otherwise see me on a p.r.n. basis. MD ISI Rodriguez/SANDRA / [id number]
== END 2024-09-26 14:17 | disposition home or self-care (01) ==
PROVIDERS: PCP Internal Medicine; Visit Provider Internal Medicine
PROC: 0DJD8ZZ Inspection of Lower Intestinal Tract, Via Natural or Artificial Opening Endoscopic (ICD-10-PCS; CPT 45378; principal; 2024-09-26 11:30)
DX: Z12.11 Encounter for screening for malignant neoplasm of colon (principal); D12.2 Benign neoplasm of ascending colon; K57.30 Diverticulosis of large intestine without perforation or abscess without bleeding; K64.8 Other hemorrhoids; E78.5 Hyperlipidemia, unspecified; Z85.3 Personal history of malignant neoplasm of breast; Z79.02 Long term (current) use of antithrombotics/antiplatelets; Z79.899 Other long term (current) drug therapy
CPT/HCPCS: 45380; 88305; J2003; J2704; J3010